=== PATIENT | female | born 1930 | race Hispanic/Latino ===

== ENCOUNTER 2018-08-07 15:58 | Inpatient (IN) | payer MEDICAID, SELFPAY ==
[~2018-08-07 15:58] MED LIST: ISOVUE-370 76%-LOCM 1 ML ONE
[2018-08-07 17:01] LABS: #Eosinphils 0.1 thou/uL (0.0-0.7); #Lymphocytes 0.8 thou/uL (1.20-3.40); #Neutrophils 5.5 thou/uL (1.40-6.50); %Basophils 0.3 % (0.0-1.0); %Eosinophils 1.2 % (0.0-10.0); %Lymphocytes 10.6 % (21.0-51.0); %Monocytes 13.5 % (0.0-10.0); %Neutrophils 74.5 % (42.0-75.0); Hemoglobin 14.2 g/dL (12.0-16.0); Mean Corpuscular HGB CONC 31.4 g/dL (32.0-36.0); Mean Corpuscular Hemoglobin 29.3 pg (27.0-31.0); Mean Corpuscular Volume 93.1 fL (78.0-98.0); Mean Platelet Volume 8.2 fL (7.4-10.4); Platelet Count 200 thou/uL (130-400); RBC Distribution Width 12.7 % (11.5-14.5); Red Blood Cell (RBC) Count 4.86 mill/uL (4.20-5.40); White Blood Cell (WBC) Count 7.4 thou/uL (4.8-10.8)
[2018-08-07 17:08] LABS: ALT (SGPT) 10 U/L (8-55); AST (SGOT) 16 U/L (5-34); Albumin 3.3 g/dL (3.4-4.8); Alkaline Phosphatase 83 U/L (40-150); Anion Gap 11 mmol/L (10-20); BUN (Urea Nitrogen) 13 mg/dL (9.8-20.1); Bilirubin, Total 0.3 mg/dL (0.2-1.2); Calc. Creatinine Clearance 0 mL/min (70-130); Calcium 8.9 mg/dL (7.8-10.44); Carbon Dioxide 29 mmol/L (23-31); Chloride 99 mmol/L (98-107); Estimated GFR-MDRD 47; Globulin 4.1 g/dL (2.4-3.5); Glucose 166 mg/dL (83-110); Potassium 3.9 mmol/L (3.5-5.1); Protein, Total 7.4 g/dL (6.0-8.3); Sodium 135 mmol/L (136-145)
--- NOTE | 2018-08-07 18:31 | CT ---
CT ANGIOGRAM CHEST WITH CONTRAST: 08/07/18 HISTORY: Shortness of breath. COMPARISON: Chest radiograph same day. FINDINGS: CT angiogram of the chest is performed after the intravenous administration of contrast. 3D rendering is provided. There is a proximal segmental pulmonary arterial filling defect. Attenuation of the anterior segment left upper lobe pulmonary artery due to mass effect from hilar mass. Pulmonary trunk is dilated. The aorta is nonaneurysmal. No significant pericardial effusion. The upper abdomen demonstrates a cyst in hepatic segment . Small splenule is noted. Large peripheral pleural based mass superior segment left lower lobe measuring 4.5 x 6.5 x 5.3 cm (tr ansverse x AP x craniocaudad). This is amenable to percutaneous biopsy. There is some hilar lymph nod es measuring up to 9 mm in short axis. There is also a left infrahilar lymph node measuring up to 14 mm in short axis. Peripheral to this mass in the left lower lobe are a few peripheral air space opaci ties. There is an abnormal mass within the right middle lobe peripherally with some central necrosis concer rangel for an either metastatic focus or secondary malignancy. This measures 4.8 x 3 x 1.4 cm. Abnormal thickening of the interstitium bilaterally suggesting some pulmonary venous congestion versus lympha tic congestion. There is an abnormal nodule peripheral aspect right upper lobe measuring 11 mm in transverse x 9 mm i n AP dimension x a craniocaudal length of 1.8 cm. There is some scarring in the left lung apex. There is multiple nodules in the left upper lobe, axial image 53. The largest measuring up to 12 mm. No thoracic spine acute compression deformity. No suspicious osteolytic or osteoblastic lesions are a ppreciated. There is abnormal lymphatic thickening in the peripheral aspect of the left upper lobe and within the lingula. IMPRESSION: 1. 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 2. Bilateral hilar adenopathy with lymphatic congestion creating lymphangitic spread of tumor in the left upper lobe and the lingula as well as the lateral basal left lower lobe. 3. Dilated pulmonary trunk suggesting pulmonary arterial hypertension. 4. No proximal segmental pulmonary arterial filling defect, although there is attenuation of the central vessels from adenopathy. 5. Dominant mass left lower lobe which is pleural based is amenable to percutaneous biopsy. CODE: T POS: [facility]
[2018-08-07] MEDS ORDERED: Ondansetron PF 4 MG/2 ML Vial IVP PRN (21:37)
[2018-08-07] MEDS ORDERED: Zolpidem Tartrate 5 MG TAB PO PRN (21:37)
[2018-08-07] MEDS ORDERED: Morphine 4 MG/ML VIAL SLOW IVP PRN (22:04)
--- NOTE | 2018-08-07 22:05 | PDOC.EVN ---
Event Note - Event Note Event Note: H&P [id number]
[2018-08-07] MEDS ORDERED: Sodium Chloride 0.9% 1,000 ML IV SCH (22:07)
--- NOTE | 2018-08-08 03:00 | HP ---
CHIEF COMPLAINT: Shortness of breath. HISTORY OF PRESENT ILLNESS: This is an 88-year-old female, complaining of cough and shortness of breath for about 2 weeks and gradually worsening with chills, fevers, and significant weakness in the last week. The patient presents to the ER with these complaints, half-handedly had a CT scan done which showed multiple different lesions in both lungs. The patient states that they were not aware of this medical history for the patient. She does admit to some unintentional weight loss. The patient states that she used to smoke for about 7 years, 40 years ago, and quit after that. Has not smoked after that. Denies any hemoptysis. Denies any other associated complaints or symptoms. No alleviating or aggravating factors noted. The patient was seen and examined in the ER. Family at bedside. All questions answered. REVIEW OF SYSTEMS: All systems reviewed. Pertinent positives in HPI, otherwise negative. PAST MEDICAL HISTORY: Positive for hypertension. FAMILY HISTORY: Positive for hypertension. ALLERGIES: THE PATIENT HAD NO KNOWN DRUG ALLERGIES. PHYSICAL EXAMINATION: VITAL SIGNS: Blood pressure 152/67, O2 saturations of 96% on 2 L nasal cannula, temperature of 99.1, respiratory rate of 20, pulse of 97. GENERAL: The patient is lying in bed, in no acute discomfort. Mask on face. HEENT: Pupils are equal, round, and reactive to light and accommodation. Extraocular muscles are intact. Oral cavity is moist and pink. NECK: Supple, mobile, nontender thyroid. CARDIOVASCULAR: Regular rate and rhythm. S1, S2, 2/6 systolic ejection murmur appreciated. PULMONARY: Coarse breath sounds bilaterally. The patient coughing frequently during evaluation. Mild respiratory distress. No increase in AP diameter. ABDOMEN: Positive bowel sounds. Soft, nontender, nondistended. EXTREMITIES: 2+ peripheral pulses. Trace edema. No cyanosis or clubbing noted. NEUROLOGICAL: Cranial nerves 2 through 12 are intact. No loss of sensory function. Antalgic gait. LABORATORY DATA: CBC within normal limits. Basic metabolic panel within normal limits. ASSESSMENT: 1. Lung lesions. 2. Hypertension. 3. Cough. PLAN: At this point in time, we will admit the patient to oncology unit. We will consult Oncology. We would do a CT scan of the head, abdomen, and pelvis to check for any metastatic processes. Case and prognosis were discussed with the patient at length. We will likely need PET scans, biopsies once the patient is stabilized. We will hold off on antibiotics at this point in time, as the patient does not have a high white count, fevers currently or coughing up any sputum, p.r.n. antitussive medications, and we will await oncology evaluation. Case and plan were discussed with the patient and family at length in Panamanian and Wolof. They understand and agree with this plan. Job ID: [id number]
[2018-08-08 06:56] LABS: #Eosinphils 0.2 thou/uL (0.0-0.7); #Monocytes 0.9 thou/uL (0.11-0.59); #Neutrophils 4.1 thou/uL (1.40-6.50); %Basophils 0.1 % (0.0-1.0); %Eosinophils 3.3 % (0.0-10.0); %Lymphocytes 15.6 % (21.0-51.0); %Monocytes 14.2 % (0.0-10.0); %Neutrophils 66.8 % (42.0-75.0); Hemoglobin 13.3 g/dL (12.0-16.0); Mean Corpuscular HGB CONC 31.8 g/dL (32.0-36.0); Mean Corpuscular Hemoglobin 29.6 pg (27.0-31.0); Mean Corpuscular Volume 93.3 fL (78.0-98.0); Mean Platelet Volume 7.9 fL (7.4-10.4); Platelet Count 192 thou/uL (130-400); RBC Distribution Width 12.8 % (11.5-14.5); Red Blood Cell (RBC) Count 4.48 mill/uL (4.20-5.40); White Blood Cell (WBC) Count 6.1 thou/uL (4.8-10.8)
[2018-08-08 07:13] LABS: Anion Gap 10 mmol/L (10-20); BUN (Urea Nitrogen) 15 mg/dL (9.8-20.1); Calc. Creatinine Clearance 0 mL/min (70-130); Calcium 8.5 mg/dL (7.8-10.44); Carbon Dioxide 29 mmol/L (23-31); Chloride 103 mmol/L (98-107); Estimated GFR-MDRD 68; Glucose 100 mg/dL (83-110); Potassium 3.9 mmol/L (3.5-5.1); Sodium 138 mmol/L (136-145)
[2018-08-08] MEDS: Heparin 5,000 UNITS/ML VIAL SC SCH ×2 (08:55→20:27)
[2018-08-08] MEDS ORDERED: Prevnar 13-Val Conj/PF 0.5 ML SYRINGE IM ONE (09:00)
--- NOTE | 2018-08-08 14:57 | PDOC.PN ---
- Subjective Encounter Start Date: 08/08/18 Encounter Start Time: 14:55 Subjective: no new complaints. feel yoana.care discussed w family at bedside - Objective MAR Reviewed: Yes Vital Signs & Weight: Vital Signs (12 hours) Temp Pulse Resp BP Pulse Ox 08/08/18 11:42 98.0 F 72 16 123/77 93 L 08/08/18 08:00 92 L 08/08/18 07:11 98.1 F 82 18 112/53 L 92 L 08/08/18 04:00 98.4 F 101 H 20 122/71 95 Weight Weight 4.409 oz Result Diagrams: 08/08/18 06:13 08/08/18 06:13 Phys Exam - Physical Examination Constitutional: NAD HEENT: PERRLA, moist MMs, sclera anicteric Neck: no nodes, no JVD, supple, full ROM Respiratory: no wheezing, no rales, no rhonchi Cardiovascular: RRR, no significant murmur Gastrointestinal: soft, non-tender, no distention, positive bowel sounds Musculoskeletal: no edema, pulses present Neurological: non-focal, normal sensation, moves all 4 limbs Psychiatric: normal affect, A&O x 3 Skin: no rash Dx/Plan (1) Lung nodules Status: Acute (2) Weight loss Status: Acute - Plan plan discussed w/ family, DVT proph w/SCDs Ct Abdomen and pelvis w brain for staging -: Oncology rec srequested. -: HD stable -: further management depending on results of varoius imaging studies -: am labs.NPo after MN for possible LN Bx * . Review of Systems - Review of Systems Constitutional: weakness, malaise. negative: fever, chills, sweats, other Respiratory: Cough, Shortness of Breath, SOB with Excertion Cardiovascular: negative: chest pain, palpitations, orthopnea, paroxysmal nocturnal dyspnea, edema, light headedness, other Gastrointestinal: negative: Nausea, Vomiting, Abdominal Pain, Diarrhea, Constipation, Melena, Hematochezia, Other Genitourinary: negative: Dysuria, Frequency, Incontinence, Hematuria, Retention , Other Musculoskeletal: negative: Neck Pain, Shoulder Pain, Arm Pain, Back Pain, Hand Pain, Leg Pain, Foot Pain, Other Neurological: negative: Weakness, Numbness, Incoordination, Change in Speech, Confusion, Seizures, Other - Medications/Allergies Allergies/Adverse Reactions: Allergies Allergy/AdvReac Type Severity Reaction Status Date / Time No Known Drug Allergies Allergy Verified 08/07/18 21:54 Medications: Current Medications Acetaminophen (Tylenol) 650 mg PO Q4H PRN PRN Reason: Headache/Fever/Mild Pain (1-3) Heparin Sodium (Porcine) (Heparin) 5,000 units SC BID ANASTASIYA Last Admin: 08/08/18 08:55 Dose: Not Given Morphine Sulfate (Morphine) 2 mg SLOW IVP Q4H PRN PRN Reason: Pain Ondansetron HCl (Zofran) 4 mg IVP Q6H PRN PRN Reason: Nausea/Vomiting Sodium Chloride (Flush - Normal Saline) 10 ml IVF Q12HR PRN PRN Reason: Saline Flush Zolpidem Tartrate (Ambien) 5 mg PO HSPRN PRN PRN Reason: Insomnia
--- NOTE | 2018-08-08 16:29 | CON ---
DATE OF CONSULTATION: REASON FOR CONSULT: Lung mass. HISTORY OF PRESENT ILLNESS: The patient is an 88-year-old Malawian-speaking only female, who presented to the emergency room with a 2-week history of shortness of breath, chills, fevers, and weakness. She had a several pound weight loss. A CT angio of the chest and thorax was performed, which showed a 4.5 x 6.5 x 5.3 left lower lobe pleural-based mass. There was a 4.8 x 3 x 1.4 cm right middle lobe mass. There was hilar lymphadenopathy. No evidence of pulmonary embolus. She has a 40 pack year plus history of smoking, quit about 7 or 8 years ago. 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 She admits to having some congestion and a sore throat. No hemoptysis. The family states that prior to the last 2 weeks, she is independent with her ADLs and had no complaints. PAST MEDICAL HISTORY: Hypertension. PAST SURGERIES: None. HOME MEDICATIONS: 1. Tessalon Perles p.r.n. 2. Iron daily. FAMILY HISTORY: No known history of cancer. SOCIAL HISTORY: She is , lives with her family. No current alcohol, tobacco, or illicit drug use. 40 plus pack-year history of smoking, quit 8 years ago. REVIEW OF SYSTEMS: Negative except for noted in HPI. PHYSICAL EXAMINATION: VITAL SIGNS: Temperature is 98.0, pulse is 72, respiratory rate is 16, BP is 123/77. She is 93% on 2 L. GENERAL: Well-developed, well-nourished female, in no acute distress. HEENT: Normocephalic, atraumatic. Pupils are equal and reactive to light. NECK: Supple with no masses. CV: Regular rate and rhythm. LUNGS: Diminished throughout. ABDOMEN: Soft and nontender. Bowel sounds are positive. There is no organomegaly. EXTREMITIES: No clubbing, cyanosis, or edema. SKIN: No rash. HEMATOLOGICAL: No petechiae or purpura. LYMPH: No palpable lymphadenopathy. PSYCH: The patient is alert and oriented. PERTINENT LABS AND X-RAYS: Current WBCs are 6.1, hemoglobin 13.3, hematocrit 41.8, platelet count is 192,000. She has 66% neutrophils, 15% lymphocytes, 14% monocytes. Sodium is 138, potassium 3.9, chloride 103, CO2 is 29, BUN is 15, creatinine is 0.80, lactic acid is 1.4, calcium 8.5, total bilirubin is 0.3, AST 16, ALT is 10, alkaline phosphatase is 83, serum total protein is 7.4, albumin 3.3, globulin 4.1. Radiology per HPI. ASSESSMENT: 1. Left lower lobe pleural-based mass. 2. Right middle lobe lesion. DISCUSSION: Current condition was discussed with the patient and family at bedside. We discussed that she will have likely advanced stage of cancer based on her CT angio. She has a brain CT and abdominal pelvis CT scheduled for further staging. We discussed percutaneous biopsy and pathology. We discussed chemotherapy versus immunotherapy, curable versus incurable disease. The plan after discussion will be to complete the further scanning. If she has widespread metastatic disease, she would likely go home on hospice. Otherwise, we will do a biopsy in the next day or so, and further recommendations will be based on those results. Thank you for the consult. Job ID: [id number]
--- NOTE | 2018-08-08 18:05 | CT ---
ABDOMEN CT WITH CONTRAST PELVIC CT WITH CONTRAST: HISTORY: Lung cancer. Evaluate for metastases. COMPARISON: None. FINDINGS: Incompletely evaluated opacities in the lingula. Refer to CT angiogram report for further details. Visualized heart size is within normal limits. Visualized aorta has a normal caliber. Symmetric att enuation of the psoas muscles. Hypodensities in the central portion of the liver, near the portal hepatis, likely representing hepat ic cysts or possible focal collections of bile. Attenuation coefficient is between 37 and 24 Hounsfi eld units. These hypodensities measure 2.1 x 1.4 and 2.1 x 0.7 cm. Intra- and extrahepatic portal v eins are patent. There does appear to be CT evidence of cholelithiasis with gallbladder wall enhance ment. Correlate clinically for cholecystitis. No significant fluid in the gallbladder fossa. The s pleen, pancreas, and adrenal glands appear to be symmetric. Exophytic hypodensity emanating from the anterior aspect of the right kidney, measuring 9 mm cannot be further characterized but is statistic ally favored to be a cyst. There is symmetric enhancement of the kidneys. No obstructive uropathy. No gastrohepatic, retrocrural, or periportal lymphadenopathy. No mesenteric mass, lymphadenopathy, free air, or free fluid. Gastric mucosa, duodenum, and multiple normal caliber small bowel loops were appreciated. Ileocecal junction is normal. Appendix is not appreciated. No inflammation of the cecal apex. Scattered feca l material in a nondistended, nondilated colon. CT PELVIS: Surgically absent uterus. No pelvic mass, lymphadenopathy, free air, or free fluid. No lytic or blastic lesions in the osseous structures. IMPRESSION: 1. No evidence of intraabdominal or pelvic metastases. 2. Hypodensity in the central portion of the liver as described above. Correlate for focal collecti ons of bile versus cysts. 3. CT evidence of cholelithiasis with gallbladder wall enhancement. Correlate clinically for cholec ystitis. POS: [facility]
[2018-08-09] MEDS: Benzonatate 100 MG CAP PO PRN ×2 (08:16→20:57)
[2018-08-09] MEDS: Heparin 5,000 UNITS/ML VIAL SC SCH ×2 (08:16→21:46)
[2018-08-09] MEDS ORDERED: traMADol HCl 50 MG TAB PO PRN (11:09)
--- NOTE | 2018-08-09 11:13 | PDOC.EVN ---
Event Note - Event Note Event Note: ACP NOTE - Discussed code status with pt and her son at bedside with the help of clinical nursing intern. Explained her possible diagnosis of Carcinoma with pending studies to locate metastasis if any. Explained possible disease trajectory in case of mets Vs w/o Mets. Pt explained and understood the resuscitation process. At this time she will like to be a Full code.Her son at bedside ,Mr Painter is being appointed her MPOA for the time being by her. Will consult [employer] for official papers for MPOA and enter Code status orders in [facility]. Total time spent in face to face ACP conversation 19 minutes
--- NOTE | 2018-08-09 12:37 | MRI ---
MRI BRAIN: DATE: 08/09/2018. PROVIDED CLINICAL HISTORY: Lung cancer, evaluate for metastases. FINDINGS: The ventricular system appears normal in size and morphology. There is no evidence for intracranial hemorrhage or mass effect. Chronic microvascular ischemic changes are demonstrated. There is no res tricted diffusion to suggest recent infarction. There is no abnormal contrast enhancement to suggest metastatic disease. Appropriate flow voids are seen within the major intracranial vessels. Mucosal thickening is noted involving the paranasal sinuses with opacification of about half of the right ma xillary sinus. The extracranial soft tissues and calvarial marrow signal appear otherwise unremarkab le. IMPRESSION: 1. No evidence for an acute intracranial abnormality. 2. Paranasal sinus mucosal disease. POS: [facility]
--- NOTE | 2018-08-09 14:12 | PDOC.PN ---
- Subjective Encounter Start Date: 08/09/18 Encounter Start Time: 14:11 Subjective: feels Ok but still very weak and gets easily SOB -: care discussed w Son at bedside -: persistent cough last night & couldn't sleep - Objective MAR Reviewed: Yes Vital Signs & Weight: Vital Signs (12 hours) Temp Pulse Resp BP BP Pulse Ox 08/09/18 11:40 98.1 F 72 18 135/63 99 08/09/18 08:00 98.1 F 74 18 123/69 95 Weight Weight 4.409 oz Result Diagrams: 08/08/18 06:13 08/08/18 06:13 Radiology Reviewed by me: Yes (CT A/;P-no mets or masses. no acute chnages) Phys Exam - Physical Examination Constitutional: NAD HEENT: PERRLA, moist MMs, sclera anicteric, oral pharynx no lesions Neck: no nodes, no JVD, supple, full ROM Respiratory: no wheezing, no rales, no rhonchi, clear to auscultation bilateral Cardiovascular: RRR, no significant murmur Gastrointestinal: soft, non-tender, no distention, positive bowel sounds Musculoskeletal: no edema, pulses present Neurological: non-focal, normal sensation, moves all 4 limbs Dx/Plan (1) Lung nodules Status: Acute (2) Weight loss Status: Acute - Plan DVT proph w/SCDs MRI brain today for staging -: Rx plan based on MRI. -: cont supportive care -: add Guafensin w Codeine. * . Review of Systems - Review of Systems Constitutional: weakness, malaise. negative: fever, chills, sweats, other Respiratory: Cough, SOB with Excertion. negative: Dry, Shortness of Breath, Hemoptysis, Pleuritic Pain, Sputum, Wheezing Cardiovascular: chest pain. negative: palpitations, orthopnea, paroxysmal nocturnal dyspnea, edema, light headedness, other Gastrointestinal: negative: Nausea, Vomiting, Abdominal Pain, Diarrhea, Constipation, Melena, Hematochezia, Other Genitourinary: negative: Dysuria, Frequency, Incontinence, Hematuria, Retention , Other Musculoskeletal: negative: Neck Pain, Shoulder Pain, Arm Pain, Back Pain, Hand Pain, Leg Pain, Foot Pain, Other Neurological: negative: Weakness, Numbness, Incoordination, Change in Speech, Confusion, Seizures, Other - Medications/Allergies Allergies/Adverse Reactions: Allergies Allergy/AdvReac Type Severity Reaction Status Date / Time No Known Drug Allergies Allergy Verified 08/07/18 21:54 Medications: Current Medications Acetaminophen (Tylenol) 650 mg PO Q4H PRN PRN Reason: Headache/Fever/Mild Pain (1-3) Benzonatate (Tessalon) 100 mg PO Q8H PRN PRN Reason: Cough Last Admin: 08/09/18 08:16 Dose: 100 mg Guaifenesin/Codeine Phosphate (Robitussin Ac) 10 ml PO Q6H PRN PRN Reason: cough Heparin Sodium (Porcine) (Heparin) 5,000 units SC BID ANASTASIYA Last Admin: 08/09/18 08:16 Dose: 5,000 units Morphine Sulfate (Morphine) 2 mg SLOW IVP Q4H PRN PRN Reason: Pain Ondansetron HCl (Zofran) 4 mg IVP Q6H PRN PRN Reason: Nausea/Vomiting Sodium Chloride (Flush - Normal Saline) 10 ml IVF Q12HR PRN PRN Reason: Saline Flush Tramadol HCl (Ultram) 50 mg PO Q4H PRN PRN Reason: Moderate Pain (4-6) Zolpidem Tartrate (Ambien) 5 mg PO HSPRN PRN PRN Reason: Insomnia
[2018-08-09] MEDS: guaiFENesin/Codeine Phosphate 200 mg/20 mg 10 ml UD Cup PO PRN ×2 (15:42→21:50)
[2018-08-10] MEDS: guaiFENesin/Codeine Phosphate 200 mg/20 mg 10 ml UD Cup PO PRN ×2 (09:27→20:45)
[2018-08-10] MEDS: Amlodipine 5 MG TAB PO SCH (09:27)
[2018-08-10] MEDS: Heparin 5,000 UNITS/ML VIAL SC SCH ×2 (09:27→20:31)
--- NOTE | 2018-08-10 13:31 | PDOC.PN ---
- Subjective Encounter Start Date: 08/10/18 Encounter Start Time: 13:29 Subjective: feesl OK. was able to get some sleep last night -: still coughing but less w medicine.no CP.sob w exertion - Objective MAR Reviewed: Yes Vital Signs & Weight: Vital Signs (12 hours) Temp Pulse Resp BP BP BP Pulse Ox 08/10/18 09:27 85 145/65 H 08/10/18 08:00 98.7 F 81 18 155/65 H 96 08/10/18 03:22 97.6 F 77 20 164/72 H 97 Weight Weight 4.409 oz I&O: 08/09/18 08/10/18 08/11/18 06:59 06:59 06:59 Intake Total 1100 Balance 1100 Result Diagrams: 08/08/18 06:13 08/08/18 06:13 Radiology Reviewed by me: Yes (mri brain- no mets) Phys Exam - Physical Examination Constitutional: NAD HEENT: PERRLA, moist MMs, sclera anicteric, oral pharynx no lesions Neck: no nodes, no JVD, supple, full ROM Respiratory: no wheezing, no rales, no rhonchi, clear to auscultation bilateral Cardiovascular: RRR, no significant murmur, no rub Gastrointestinal: soft, non-tender, no distention, positive bowel sounds Musculoskeletal: no edema, pulses present Neurological: non-focal, normal sensation, moves all 4 limbs Psychiatric: normal affect, A&O x 3 Skin: no rash Dx/Plan (1) Lung nodules Status: Acute (2) Weight loss Status: Acute - Plan DVT proph w/SCDs will likley need lung nodule Bx-defer to Oncology -: Hd stable. -: add low dose norvasc as BP continues to run high * . Review of Systems - Review of Systems Constitutional: weakness, malaise Respiratory: Cough, SOB with Excertion. negative: Dry, Shortness of Breath, Hemoptysis, Pleuritic Pain, Sputum, Wheezing Cardiovascular: negative: chest pain, palpitations, orthopnea, paroxysmal nocturnal dyspnea, edema, light headedness, other Gastrointestinal: negative: Nausea, Vomiting, Abdominal Pain, Diarrhea, Constipation, Melena, Hematochezia, Other Genitourinary: negative: Dysuria, Frequency, Incontinence, Hematuria, Retention , Other Musculoskeletal: negative: Neck Pain, Shoulder Pain, Arm Pain, Back Pain, Hand Pain, Leg Pain, Foot Pain, Other Skin: negative: Rash, Lesions, Nikolay, Bruising, Other Neurological: negative: Weakness, Numbness, Incoordination, Change in Speech, Confusion, Seizures, Other - Medications/Allergies Allergies/Adverse Reactions: Allergies Allergy/AdvReac Type Severity Reaction Status Date / Time No Known Drug Allergies Allergy Verified 08/07/18 21:54 Medications: Current Medications Acetaminophen (Tylenol) 650 mg PO Q4H PRN PRN Reason: Headache/Fever/Mild Pain (1-3) Amlodipine Besylate (Norvasc) 2.5 mg PO DAILY [facility] Last Admin: 08/10/18 09:27 Dose: 2.5 mg Benzonatate (Tessalon) 100 mg PO Q8H PRN PRN Reason: Cough Last Admin: 08/09/18 20:57 Dose: 100 mg Guaifenesin/Codeine Phosphate (Robitussin Ac) 10 ml PO Q6H PRN PRN Reason: cough Last Admin: 08/10/18 09:27 Dose: 10 ml Heparin Sodium (Porcine) (Heparin) 5,000 units SC BID [facility] Last Admin: 08/10/18 09:27 Dose: 5,000 units Morphine Sulfate (Morphine) 2 mg SLOW IVP Q4H PRN PRN Reason: Pain Ondansetron HCl (Zofran) 4 mg IVP Q6H PRN PRN Reason: Nausea/Vomiting Sodium Chloride (Flush - Normal Saline) 10 ml IVF Q12HR PRN PRN Reason: Saline Flush Tramadol HCl (Ultram) 50 mg PO Q4H PRN PRN Reason: Moderate Pain (4-6) Zolpidem Tartrate (Ambien) 5 mg PO HSPRN PRN PRN Reason: Insomnia
[2018-08-11] MEDS: Heparin 5,000 UNITS/ML VIAL SC SCH ×2 (08:39→20:56)
[2018-08-11] MEDS: Amlodipine 5 MG TAB PO SCH (08:41)
[2018-08-11] MEDS: Acetaminophen 325 MG TAB PO PRN (10:38)
[2018-08-11 11:43] LABS: Prothrombin Time 13.5 SEC (12.0-14.7)
[2018-08-11] MEDS ORDERED: Fentanyl 100 MCG/2 ML VIAL ONE (13:18)
[2018-08-11] MEDS ORDERED: Midazolam HCl 2 mg/2 ml Vial ONE (13:18)
[2018-08-11] MEDS ORDERED: Sodium Bicarbonate 2.5 MEQ/5 ML VIAL ONE (13:18)
--- NOTE | 2018-08-11 14:31 | PDOC.PN ---
- Subjective Encounter Start Date: 08/11/18 Encounter Start Time: 14:30 Subjective: no new complaints.still SOB w minimal exertion -: care discussed w family at bedside.Lung Biopsy today - Objective MAR Reviewed: Yes Vital Signs & Weight: Vital Signs (12 hours) Temp Pulse Resp BP BP Pulse Ox 08/11/18 08:41 79 147/68 H 08/11/18 08:00 96 08/11/18 06:52 98.0 F 79 16 147/68 H 96 08/11/18 03:47 97.8 F 63 16 127/62 98 Weight Weight 4.409 oz I&O: 08/10/18 08/11/18 08/12/18 06:59 06:59 06:59 Intake Total 1100 950 120 Balance 1100 950 120 Result Diagrams: 08/08/18 06:13 08/08/18 06:13 Phys Exam - Physical Examination Constitutional: NAD HEENT: PERRLA, moist MMs, sclera anicteric, oral pharynx no lesions Neck: no nodes, no JVD, supple, full ROM Respiratory: no wheezing, no rales, no rhonchi, clear to auscultation bilateral Cardiovascular: RRR, no significant murmur, no rub Gastrointestinal: soft, non-tender, no distention, positive bowel sounds Musculoskeletal: no edema, pulses present Neurological: non-focal, normal sensation, moves all 4 limbs Psychiatric: normal affect, A&O x 3 Skin: no rash Dx/Plan (1) Lung nodules Status: Acute (2) Weight loss Status: Acute - Plan DVT proph w/SCDs Lung Biopsy today. -: Will arrange for home oxygen as low O2 sats without supplemental -: No mets on MRI brain and CT A/P. -: Likely DC home in am if stable w OP Oncology follow up for Rx * . Review of Systems - Review of Systems Constitutional: negative: fever, chills, sweats, weakness, malaise, other ENT: negative: Ear Pain, Ear Discharge, Nose Pain, Nose Discharge, Nose Congestion, Mouth Pain, Mouth Swelling, Throat Pain, Throat Swelling, Other Respiratory: Shortness of Breath, SOB with Excertion. negative: Cough, Dry, Hemoptysis, Pleuritic Pain, Sputum, Wheezing Cardiovascular: negative: chest pain, palpitations, orthopnea, paroxysmal nocturnal dyspnea, edema, light headedness, other Gastrointestinal: negative: Nausea, Vomiting, Abdominal Pain, Diarrhea, Constipation, Melena, Hematochezia, Other Genitourinary: negative: Dysuria, Frequency, Incontinence, Hematuria, Retention , Other Musculoskeletal: negative: Neck Pain, Shoulder Pain, Arm Pain, Back Pain, Hand Pain, Leg Pain, Foot Pain, Other Neurological: negative: Weakness, Numbness, Incoordination, Change in Speech, Confusion, Seizures, Other - Medications/Allergies Allergies/Adverse Reactions: Allergies Allergy/AdvReac Type Severity Reaction Status Date / Time No Known Drug Allergies Allergy Verified 08/07/18 21:54 Medications: Current Medications Acetaminophen (Tylenol) 650 mg PO Q4H PRN PRN Reason: Headache/Fever/Mild Pain (1-3) Last Admin: 08/11/18 10:38 Dose: 650 mg Amlodipine Besylate (Norvasc) 2.5 mg PO DAILY [facility] Last Admin: 08/11/18 08:41 Dose: 2.5 mg Benzonatate (Tessalon) 100 mg PO Q8H PRN PRN Reason: Cough Last Admin: 08/09/18 20:57 Dose: 100 mg Guaifenesin/Codeine Phosphate (Robitussin Ac) 10 ml PO Q6H PRN PRN Reason: cough Last Admin: 08/10/18 20:45 Dose: 10 ml Heparin Sodium (Porcine) (Heparin) 5,000 units SC BID [facility] Last Admin: 08/11/18 08:39 Dose: Not Given Morphine Sulfate (Morphine) 2 mg SLOW IVP Q4H PRN PRN Reason: Pain Ondansetron HCl (Zofran) 4 mg IVP Q6H PRN PRN Reason: Nausea/Vomiting Sodium Chloride (Flush - Normal Saline) 10 ml IVF Q12HR PRN PRN Reason: Saline Flush Tramadol HCl (Ultram) 50 mg PO Q4H PRN PRN Reason: Moderate Pain (4-6) Zolpidem Tartrate (Ambien) 5 mg PO HSPRN PRN PRN Reason: Insomnia
--- NOTE | 2018-08-11 15:46 | CT ---
CT GUIDED LEFT LOWER LOBE LUNG BIOPSY: Date: 08/11/18 HISTORY: 88-year-old female with left lower lobe lung masses, consisting of a dominant mass and multiple surro unding satellite nodules. TECHNIQUE: Signed, informed consent obtained. The patient was placed prone on the CT table. Skin posterior to th e left lower lobe prepared and draped in the usual sterile fashion. 25 gauge needle used to apply lid ocaine superficially and deeply. Under step CT guidance, a 17 gauge introducer needle was advanced to the posterior aspect of the large, left lower lobe pulmonary mass with broad pleural base. Stylette was removed from the introducer needle. 18 gauge biopsy needle was placed in coaxial fashion through the introducer needle. The biopsy gun was fired, yielding core tissue sample, which was placed in For mary. Next, after arrival of Dr. Gupta of pathology, a second 18 gauge core sample was obtained, whi ch was smeared on the slide, then placed in formalin. The needle was removed. The patient tolerated t he procedure well. No complications. FINDINGS: Images demonstrate the introducer needle at the posterior aspect of the large left lower lobe pulmona ry mass with broad pleural base. Post biopsy images demonstrate minimal pulmonary contusion anterior to the pulmonary mass, but no pneumothorax. 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 Awaiting final histological report. IMPRESSION: Technically successful 18 gauge core biopsy of large left lower lobe pulmonary mass x2. POS: [facility]
[2018-08-11] MEDS: guaiFENesin/Codeine Phosphate 200 mg/20 mg 10 ml UD Cup PO PRN (21:04)
[2018-08-12 09:24] VITALS: BP 162/70; TEMP 98.5
[2018-08-12] MEDS: Amlodipine 5 MG TAB PO SCH (09:27)
[2018-08-12] MEDS: Heparin 5,000 UNITS/ML VIAL SC SCH (09:27)
[2018-08-12] MEDS: Acetaminophen 325 MG TAB PO PRN (13:45)
[2018-08-12] MEDS: guaiFENesin/Codeine Phosphate 200 mg/20 mg 10 ml UD Cup PO PRN (13:45)
--- NOTE | 2018-08-13 09:16 | DIS ---
DATE OF ADMISSION: 08/07/2018 DATE OF DISCHARGE: 08/12/2018 DISCHARGE DISPOSITION: Home. FOLLOWUP: 1. Follow up with primary care physician at [facility]. 2. Follow up with Dr. Gandhi, outpatient next week. ALLERGIES: NO KNOWN DRUG ALLERGIES. DISCHARGE MEDICATIONS: 1. Albuterol inhaler as needed. 2. Amlodipine 2.5 mg daily. 3. Mucinex twice a day. 4. Oral iron supplementation daily. 5. Tessalon Perles as needed. The patient was seen and examined on the day of discharge. Denies any new complaints. No chest pain, shortness of breath, or palpitations reported. She is saturating 92% on room air even on ambulation. BRIEF HOSPITAL COURSE: The patient is an 88-year-old female with hypertension, presented to the hospital with cough and shortness of breath of [address] scan of the chest in the emergency room was consistent with left lower lobe malignancy with multiple satellite nodules along with bilateral hilar adenopathy. The patient was monitored on the medical floor. She underwent malignancy workup by Oncology Service including CT scan of the abdomen and MRI of the brain. On August 11, 2018, the patient underwent CT-guided left lower lobe lung malignancy. She was monitored overnight. She did not have any complications. She has been cleared by Oncology for discharge. DIAGNOSTIC TESTS: CT scan of the abdomen and pelvis showed cholelithiasis without any evidence of cholecystitis. There was hypodensity in the central portion of the liver. MRI of the brain was negative for metastatic disease. PLAN: Plan of care was discussed with the patient and the family in detail, they stated understanding. FINAL DIAGNOSES: 1. New diagnosis of lung malignancy with significant weight loss. 2. Cough and shortness of breath secondary to new diagnosis of lung malignancy with significant weight loss. 3. Cholelithiasis. 4. Hypertension, started on amlodipine. 5. Mild acute kidney injury on chronic kidney disease stage 2. 6. Mild hyponatremia. 7. Mild protein-calorie malnutrition. Job ID: [id number]
== END 2018-08-12 13:57 | disposition home or self-care (01) | DRG 181 ==
LOC: ERS 15:58 → T4-A 21:33 → ONC 08-09 11:07
PROVIDERS: ADMIT Internal Medicine; ATTEND Internal Medicine
PROC: 0BBJ3ZX Excision of Left Lower Lung Lobe, Percutaneous Approach, Diagnostic (ICD-10-PCS; principal; 2018-08-11)
DX: C34.32 Malignant neoplasm of lower lobe, left bronchus or lung (principal); N17.9 Acute kidney failure, unspecified; E87.1 Hypo-osmolality and hyponatremia; E44.1 Mild protein-calorie malnutrition; K80.20 Calculus of gallbladder without cholecystitis without obstruction; N18.2 Chronic kidney disease, stage 2 (mild); I12.9 Hypertensive chronic kidney disease with stage 1 through stage 4 chronic kidney disease, or unspecified chronic kidney disease; Z87.891 Personal history of nicotine dependence
CPT/HCPCS: 32405; 36415; 70553; 71275; 74177; 77012; 80048; 80053; 83605; 84484; 85025; 85610; 85730; 88305; 88333; 88341; 88342; 93005; 94760; J1642; J1644; J2250; J3010; Q9966

== ENCOUNTER 2018-09-18 11:30 | Day surgery (SDC) | payer MEDICAID ==
[2018-09-18] MEDS ORDERED: Sodium Chloride 0.9% 30 ML ONE (12:02)
[2018-09-18 12:06] VITALS: BP 133/60; TEMP 97.7
[2018-09-18] MEDS ORDERED: Pembrolizumab 200 MG in Sodium Chloride 0.9% 250 ML 250 ML IV SCH (12:15)
== END 2018-09-18 13:38 | disposition home or self-care (01) ==
LOC: ONC/OP 11:30
PROVIDERS: ATTEND Internal Medicine Hematology & Oncology
DX: Z51.11 Encounter for antineoplastic chemotherapy (principal); C34.32 Malignant neoplasm of lower lobe, left bronchus or lung
CPT/HCPCS: 96413; J7050; J9271

== ENCOUNTER 2018-10-09 11:31 | Day surgery (SDC) | payer MEDICAID ==
[~2018-10-09 11:31] MED LIST changes: -ISOVUE-370 76%-LOCM 1 ML ONE; +Pembrolizumab 200 MG in Sodium Chloride 0.9% 250 ML 250 ML IV SCH
[2018-10-09 12:03] VITALS: BP 111/64; TEMP 98.3
[2018-10-09] MEDS ORDERED: Sodium Chloride 0.9% 20 ML ONE (12:09)
== END 2018-10-09 12:33 | disposition home or self-care (01) ==
LOC: ONC/OP 11:31
PROVIDERS: ATTEND Internal Medicine Hematology & Oncology
DX: Z51.11 Encounter for antineoplastic chemotherapy (principal); C34.32 Malignant neoplasm of lower lobe, left bronchus or lung
CPT/HCPCS: 96413

== ENCOUNTER 2018-10-30 10:36 | Day surgery (SDC) | payer MEDICAID ==
[2018-10-30] MEDS ORDERED: Sodium Chloride 0.9% 20 ML ONE (10:40)
[2018-10-30 11:36] VITALS: BP 148/64; TEMP 97.9
[2018-10-30] MEDS ORDERED: Prevnar 13-Val Conj/PF 0.5 ML SYRINGE IM ONE (15:00)
== END 2018-10-30 16:29 | disposition home or self-care (01) ==
LOC: ONC/OP 10:36
PROVIDERS: ATTEND Internal Medicine Hematology & Oncology
DX: Z51.12 Encounter for antineoplastic immunotherapy (principal); C34.32 Malignant neoplasm of lower lobe, left bronchus or lung
CPT/HCPCS: 96413; J7050; J9271

== ENCOUNTER 2018-11-27 12:23 | Day surgery (SDC) | payer SELFPAY ==
--- NOTE | 2018-11-27 13:49 | RAD ---
XR Thoracic Spine 3 V STANDARD: 11/27/2018 12:00 AM CLINICAL INDICATION: Back pain COMPARISON: None. FINDINGS: Fracture:Discrete fracture not visualized Arthropathy:Prominent multilevel degenerative change of the thoracic spine. There is thoracic kyphosi s as well as S-shaped spinal curvature Incidental findings:Vascular calcification. 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
[2018-11-27] MEDS ORDERED: Sodium Chloride 0.9% 20 ML ONE (13:57)
--- NOTE | 2018-11-27 15:44 | RAD ---
CERVICAL SPINE: 11/27/18 HISTORY: Neck and back pain. There are degenerative changes of the cervical spine. Loss of disc space and degenerative spurring se en at C2-3, C4-5, C5-6 and C6-7 levels. Posterior spondylosis is prominent at C2-3, C3-4, C4-5 and C5 -6 levels. There is slight posterolisthesis at C4-5. Mild anterior wedging of C4 and C5 vertebra. Fac et hypertrophy. IMPRESSION: Moderate degenerative changes of the cervical spine as described. POS: [facility]
[2018-11-27 16:33] VITALS: BP 134/63; TEMP 97.9
== END 2018-11-27 16:37 | disposition home or self-care (01) ==
LOC: ONC/OP 12:23
PROVIDERS: ATTEND Internal Medicine Hematology & Oncology
DX: Z51.12 Encounter for antineoplastic immunotherapy (principal); C34.32 Malignant neoplasm of lower lobe, left bronchus or lung
CPT/HCPCS: 72040; 72072; 96413

== ENCOUNTER 2018-12-16 08:44 | Outpatient (CLI) | payer MEDICAID, OTHER, SELFPAY ==
--- NOTE | 2018-12-16 09:57 | CT ---
CT Chest W Con History: Lung cancer Comparison: Chest CT August 10, 2018 Findings: The dominant left lower lobe mass has decreased in size with a maximum of 2.5 cm, previousl y 6.5 cm. Satellite nodules along the anterior segment left upper lobe and major fissure are not as well-defined on today's exam. Mass along the right middle lobe has a maximum dimension of 3 cm, previ ously 4.8 cm. The previously described nodule in the right upper lobe peripheral aspect is not as well-defined as g reatest dimension of 7 mm, previously 11 mm. Hilar adenopathy has improved. With largest right hilar lymph node measuring up to 9 mm in size, prev iously 1.4 cm. Hepatic cysts are similar. Adrenal glands are unremarkable. Slight interval size increase left pleura l effusion. No pericardial effusion. Pulmonary trunk size is mildly dilated. No suspicious osteolytic or osteoblastic lesions. Impression: Interval partial response to therapy with size decrease dominant left lower lobe mass, si ze decreased right middle lobe mass, obscured small satellite nodules, and improving adenopathy.
== END 2018-12-16 08:45 | disposition home or self-care (01) ==
LOC: CT 08:44
PROVIDERS: ATTEND Internal Medicine Hematology & Oncology
DX: C34.92 Malignant neoplasm of unspecified part of left bronchus or lung (principal); R91.8 Other nonspecific abnormal finding of lung field
CPT/HCPCS: 71260

== ENCOUNTER 2018-12-18 12:47 | Day surgery (SDC) | payer SELFPAY ==
[2018-12-18] MEDS ORDERED: Sodium Chloride 0.9% 20 ML ONE (13:15)
[2018-12-18 13:16] VITALS: BP 148/69; TEMP 97.7
== END 2018-12-18 14:15 | disposition home or self-care (01) ==
LOC: ONC/OP 12:47
PROVIDERS: ATTEND Internal Medicine Hematology & Oncology
DX: Z51.12 Encounter for antineoplastic immunotherapy (principal); C34.32 Malignant neoplasm of lower lobe, left bronchus or lung
CPT/HCPCS: 96413

== ENCOUNTER 2019-01-08 12:43 | Day surgery (SDC) | payer SELFPAY ==
[2019-01-08] MEDS ORDERED: Sodium Chloride 0.9% 20 ML ONE (12:45)
== END 2019-01-08 13:57 | disposition home or self-care (01) ==
LOC: ONC/OP 12:43
PROVIDERS: ATTEND Internal Medicine Hematology & Oncology
DX: Z51.12 Encounter for antineoplastic immunotherapy (principal); C34.32 Malignant neoplasm of lower lobe, left bronchus or lung
CPT/HCPCS: 96413; J7050; J9271

== ENCOUNTER 2019-01-29 12:16 | Day surgery (SDC) | payer OTHER, SELFPAY ==
[2019-01-29 12:34] VITALS: BP 123/64; TEMP 97.8
== END 2019-01-29 13:37 | disposition home or self-care (01) ==
LOC: ONC/OP 12:16
PROVIDERS: ATTEND Internal Medicine Hematology & Oncology
DX: Z51.12 Encounter for antineoplastic immunotherapy (principal); C34.32 Malignant neoplasm of lower lobe, left bronchus or lung
CPT/HCPCS: 96413; J7050; J9271

== ENCOUNTER 2019-02-19 11:42 | Day surgery (SDC) | payer OTHER ==
[2019-02-19] MEDS ORDERED: Sodium Chloride 0.9% 20 ML ONE (11:45)
== END 2019-02-19 13:58 | disposition home or self-care (01) ==
LOC: ONC/OP 11:42
PROVIDERS: ATTEND Internal Medicine Hematology & Oncology
DX: Z51.12 Encounter for antineoplastic immunotherapy (principal); C34.32 Malignant neoplasm of lower lobe, left bronchus or lung
CPT/HCPCS: 96413

== ENCOUNTER 2019-03-11 08:07 | Outpatient (CLI) | payer OTHER ==
--- NOTE | 2019-03-11 11:39 | CT ---
CT CHEST WITH CONTRAST: Date: 03/11/19 INDICATION: Lung cancer. Comparison made to CT chest dated 12/16/18. FINDINGS: The pleural based mass in the posterior left mid lung is again seen. This has a wedge-shaped appearan ce. It is slightly increased in size when compared to prior exam. Axial measurements today on lung wi ndows measured 4.4 x 3.7 cm. Prior similar measurements were 3.9 x 3.2 cm. The linear mass density in the right mid lung within the right middle lobe which extends laterally to the pleural surface has also increased in size. It continues to measure approximately 2.5 cm AP dime nsion in the axial plane; however, it has increased in size at the pleural surface today, measuring a pproximately 4.8 cm AP dimension in the axial plane. Apical nodular opacities are stable. The chronic appearing interstitial and fibrotic changes in the lingula peripherally along the pleural surface ar e stable. Chronic appearing changes in the lung bases are also unchanged. These are more pronounced i n the left lower lobe posteriorly. Review of the mediastinum today shows confluent right hilar adenopathy which has increased slightly s karla the prior study. Mediastinal lymph nodes appear stable. Left hilar adenopathy does not appear si gnificantly changed. Thoracic aorta shows atherosclerotic change, but no evidence of dissection. Proximal pulmonary arteri es are opacified with no evidence of proximal pulmonary embolus. The bones show osteopenia and degene rative change. Images through the upper abdomen again show a mildly distended gallbladder with a soft tissue density in the gallbladder lumen, which could represent mass or polyp. This has a stable appearance. IMPRESSION: 1. Mild increase in size in the pleural based masses of the posterior left mid lung and the lateral right lung. 2. Slight increase in the right hilar adenopathy. 3. Distended gallbladder with soft tissue density within the gallbladder lumen which is incompletely evaluated. POS: [facility]
== END 2019-03-11 08:08 | disposition home or self-care (01) ==
LOC: BICCT 08:07
PROVIDERS: ATTEND Internal Medicine Hematology & Oncology
DX: C34.32 Malignant neoplasm of lower lobe, left bronchus or lung (principal); R91.8 Other nonspecific abnormal finding of lung field; R59.0 Localized enlarged lymph nodes; K82.8 Other specified diseases of gallbladder
CPT/HCPCS: 71260

== ENCOUNTER 2019-03-12 12:00 | Day surgery (SDC) | payer OTHER ==
[2019-03-12] MEDS ORDERED: Sodium Chloride 0.9% 20 ML ONE (13:18)
== END 2019-03-12 14:08 | disposition home or self-care (01) ==
LOC: ONC/OP 12:00
PROVIDERS: ATTEND Internal Medicine Hematology & Oncology
DX: Z51.12 Encounter for antineoplastic immunotherapy (principal); C34.32 Malignant neoplasm of lower lobe, left bronchus or lung
CPT/HCPCS: 96413

== ENCOUNTER 2019-04-02 11:37 | Day surgery (SDC) | payer OTHER ==
[2019-04-02] MEDS ORDERED: Sodium Chloride 0.9% 20 ML ONE (11:39)
[2019-04-02 12:06] VITALS: BP 132/60; TEMP 97.7
== END 2019-04-02 13:11 | disposition home or self-care (01) ==
LOC: ONC/OP 11:37
PROVIDERS: ATTEND Internal Medicine Hematology & Oncology
DX: Z51.12 Encounter for antineoplastic immunotherapy (principal); C34.32 Malignant neoplasm of lower lobe, left bronchus or lung
CPT/HCPCS: 96413

== ENCOUNTER 2019-04-23 12:04 | Day surgery (SDC) | payer SELFPAY ==
[2019-04-23] MEDS ORDERED: Sodium Chloride 0.9% 20 ML ONE (12:11)
[2019-04-23 12:35] VITALS: BP 151/68; TEMP 98.7
== END 2019-04-23 13:22 | disposition home or self-care (01) ==
LOC: ONC/OP 12:04
PROVIDERS: ATTEND Internal Medicine Hematology & Oncology
DX: Z51.12 Encounter for antineoplastic immunotherapy (principal); C34.32 Malignant neoplasm of lower lobe, left bronchus or lung
CPT/HCPCS: 96413

== ENCOUNTER 2019-05-11 09:02 | Outpatient (CLI) | payer OTHER ==
--- NOTE | 2019-05-11 10:06 | CT ---
CT CHEST WITH CONTRAST: CT ABDOMEN WITH CONTRAST: CT PELVIS WITH CONTRAST: HISTORY: Lung cancer. CORRELATION: None. COMPARISON: 03/11/2019, 12/16/2018, 08/08/2018 FINDINGS: CHEST Mediastinum: Redemonstration of a right peritracheal lymph node, measuring 1.5 x 1.0 cm. Previously l ymph node measured 1.6 x 1.4 cm. Redemonstration of an enlarged right hilar lymph node, currently measuring 1.4 x 1.6 cm. Previously lymph node measured 1.6 x 1.7 cm. Redemonstration of enlarged left hilar lymph node, measuring 1.4 x 0.9 cm. Previously lymph node measured 1.9 x 0.9 cm. Aorta: Unchanged. Heart: Stable configuration and size. No significant pericardial fluid. Trachea and central bronchi: Patent. Pleural spaces: No significant pleural fluid. Trace amount of fluid in the left pleural space is note d. Right lung: Improved opacity in the right middle lobe, abutting the major fissure. Residual ground gl ass opacity and air bronchograms do remain. Currently this opacity measures 2.2 x 1.8 cm. In February 2019 this opacity measured 2.6 x 4.8 cm. There are no new suspicious opacities in the right u pper lobe, middle lobe or right lower lobe. Chronic lung parenchymal changes are noted. There are alveolar opacities in the dependent portion of the right lower lobe on the previous examination, whic h have currently resolved. There is a nonspecific 0.3 cm solid nodule in the medial right lower lobe. Left lung:Changes to the interstitium are presumed to be chronic. There is a persistent opacity in th e superior segment of the left lower lobe that currently measures 2.7 x 3.2 cm. Previously this opacity measured 3.7 x 4.4 cm. Additional chronic changes of the lung parenchyma are noted. There are no new suspicious masses or consolidation in the left upper lobe or left lower lobe. Pneumothorax: None. ABDOMEN Gallbladder: Hyperdense focus in the lumen of the gallbladder, not entirely consistent with a gallsto ne. The possibility of an intraluminal neoplasm cannot be excluded. Persistent dilatation of the central intrahepatic biliary system. Portal vein: Patent Liver: Appropriate enhancement. Spleen: Appropriate enhancement. Pancreas: Appropriate enhancement. Adrenal glands: Appropriate enhancement. Lymphadenopathy: No gastrohepatic, retrocrural or periportal lymphadenopathy. Kidneys: Symmetric enhancement. Bilaterally no obstructive uropathy. Stable 1.4 cm hypodensity emanat ing from the upper pole of the right kidney. Mesentery: No mass, lymphadenopathy, free air or free fluid. Alimentary canal: Unremarkable gastric mucosa. Multiple normal caliber small bowel loops. Unremarkabl e ileocecal junction. Contrast and fecal material in a nondistended, nondilated colon. PELVIS No mass, lymphadenopathy, free air or free fluid. Uterus is surgically absent. Osseous structures: There are no lytic or blastic lesions in the osseous structures. Severe degenerat arturo change in the right hip. IMPRESSION: 1. Overall decrease in size of opacities in the left and right lung as well as enlarged mediastinal l ymph nodes. There is evidence for response to therapy. 2. Persistent dilatation of the gallbladder and central intrahepatic biliary system. Enhancing focus in the lumen of the gallbladder, not compatible with a gallstone. Intraluminal neoplasm cannot be excluded. Transcribed Date/Time: 05/11/2019 10:51 AM
--- NOTE | 2019-05-11 14:40 | NM ---
BONE SCAN: Date: 05/11/19 Patient given 31 mCi technetium MDP IV. Whole body skeletal images obtained. Spot images of skull. INDICATION: Malignant neoplasm left bronchus. FINDINGS: Increased activity at the right hip joint is noted. This is probably degenerative. There is uneven ac tivity in the lower thoracic and lumbar spine, which also appears degenerative. No activity is seen t hat would suggest metastasis. Recommend correlation with thoracic and lumbar spine films to confirm d egenerative change and recommend correlation with right hip films. IMPRESSION: Abnormal activity at the right hip and in the lower thoracic and lumbar spine, which suggest degenera tive change. Correlate with plain films for confirmation. POS: [facility]
== END 2019-05-11 09:03 | disposition home or self-care (01) ==
LOC: CT 09:02
PROVIDERS: ATTEND Internal Medicine Hematology & Oncology
DX: C34.32 Malignant neoplasm of lower lobe, left bronchus or lung (principal); R91.8 Other nonspecific abnormal finding of lung field; R59.0 Localized enlarged lymph nodes
CPT/HCPCS: 71260; 74177; 78306; A9503

== ENCOUNTER 2019-05-14 11:22 | Day surgery (SDC) | payer OTHER ==
[2019-05-14] MEDS ORDERED: Sodium Chloride 0.9% 20 ML ONE (11:27)
[2019-05-14 11:42] VITALS: BP 170/69; TEMP 98.2
== END 2019-05-14 12:33 | disposition home or self-care (01) ==
LOC: ONC/OP 11:22
PROVIDERS: ATTEND Internal Medicine Hematology & Oncology
DX: Z51.12 Encounter for antineoplastic immunotherapy (principal); C34.32 Malignant neoplasm of lower lobe, left bronchus or lung
CPT/HCPCS: 96413

== ENCOUNTER 2019-06-01 07:10 | Outpatient (CLI) | payer OTHER ==
--- NOTE | 2019-06-01 08:33 | ULT ---
GALLBLADDER ULTRASOUND: Date: 06/01/2019 HISTORY: Abnormal gallbladder on CT. FINDINGS: There is a fairly well circumscribed abnormal opacity within the gallbladder with faint shadowing, po ssibly a large gallstone versus a very well defined sludge ball measuring 1.3 x 1.6 x 2.3 cm. Gallbla dder wall is not thickened. No pericholecystic fluid. Common bile duct dilated at 0.9 cm. No focal li saurav masses. The previously noted liver cysts on the prior CT are poorly evaluated on this study. IMPRESSION: 1. Circumscribed opacity within the gallbladder without gallbladder wall thickening or pericholecyst ic fluid. This raises the possibility of a faintly shadowing gallstone versus prominent sludge ball. 2. The previously noted liver cysts are less optimally seen on this study. 3. Common bile duct 0.9 cm. POS: [facility]
== END 2019-06-01 07:11 | disposition home or self-care (01) ==
LOC: BICULT 07:10
PROVIDERS: ATTEND Internal Medicine Hematology & Oncology
DX: R93.2 Abnormal findings on diagnostic imaging of liver and biliary tract (principal); R10.811 Right upper quadrant abdominal tenderness; C34.32 Malignant neoplasm of lower lobe, left bronchus or lung; K76.89 Other specified diseases of liver
CPT/HCPCS: 76705

== ENCOUNTER 2019-06-04 12:08 | Day surgery (SDC) | payer OTHER ==
[2019-06-04] MEDS ORDERED: Sodium Chloride 0.9% 0 ML ONE (12:14)
[2019-06-04 13:11] VITALS: BP 123/60; TEMP 97.9
[2019-06-04] MEDS ORDERED: Sodium Chloride 0.9% 20 ML ONE (13:36)
== END 2019-06-04 13:42 | disposition home or self-care (01) ==
LOC: ONC/OP 12:08
PROVIDERS: ATTEND Internal Medicine Hematology & Oncology
DX: Z51.12 Encounter for antineoplastic immunotherapy (principal); C34.32 Malignant neoplasm of lower lobe, left bronchus or lung
CPT/HCPCS: 96413; J3490

== ENCOUNTER 2019-06-25 11:09 | Day surgery (SDC) | payer OTHER ==
[2019-06-25 11:32] VITALS: BP 176/72; TEMP 97.8
== END 2019-06-25 12:30 | disposition home or self-care (01) ==
LOC: ONC/OP 11:09
PROVIDERS: ATTEND Internal Medicine Hematology & Oncology
DX: Z51.12 Encounter for antineoplastic immunotherapy (principal); C34.32 Malignant neoplasm of lower lobe, left bronchus or lung
CPT/HCPCS: 96413

== ENCOUNTER 2019-07-07 17:08 | Inpatient (IN) | payer OTHER ==
[2019-07-07 18:09] LABS: #Basophils 0.1 thou/uL (0.0-0.2); #Eosinphils 0.3 thou/uL (0.0-0.7); #Lymphocytes 0.9 thou/uL (1.20-3.40); #Monocytes 0.4 thou/uL (0.11-0.59); #Neutrophils 2.3 thou/uL (1.40-6.50); %Basophils 2.7 % (0.0-1.0); %Monocytes 9.6 % (0.0-10.0); %Neutrophils 58.7 % (42.0-75.0); Hemoglobin 13.7 g/dL (12.0-16.0); Mean Corpuscular HGB CONC 32.5 g/dL (32.0-36.0); Mean Corpuscular Hemoglobin 29.3 pg (27.0-31.0); Mean Corpuscular Volume 90.1 fL (78.0-98.0); Mean Platelet Volume 7.9 fL (7.4-10.4); Platelet Count 161 thou/uL (130-400); RBC Distribution Width 13.1 % (11.5-14.5); Red Blood Cell (RBC) Count 4.68 mill/uL (4.20-5.40); White Blood Cell (WBC) Count 3.9 thou/uL (4.8-10.8)
[2019-07-07 18:30] LABS: ALT (SGPT) 12 U/L (8-55); AST (SGOT) 18 U/L (5-34); Albumin 3.6 g/dL (3.4-4.8); Alkaline Phosphatase 87 U/L (40-110); Anion Gap 11 mmol/L (10-20); BUN (Urea Nitrogen) 18 mg/dL (9.8-20.1); Bilirubin, Total 0.2 mg/dL (0.2-1.2); Calc. Creatinine Clearance 0 mL/min (70-130); Calcium 8.5 mg/dL (7.8-10.44); Carbon Dioxide 27 mmol/L (23-31); Chloride 101 mmol/L (98-107); Estimated GFR-MDRD 66; Globulin 3.7 g/dL (2.4-3.5); Glucose 96 mg/dL (83-110); Potassium 4.4 mmol/L (3.5-5.1); Protein, Total 7.3 g/dL (6.0-8.3); Sodium 135 mmol/L (136-145)
--- NOTE | 2019-07-07 18:31 | RAD ---
PA AND LATERAL VIEWS CHEST: 07/07/19 HISTORY: Lung cancer, dyspnea. FINDINGS/IMPRESSION: The heart size is borderline. The aorta is tortuous. There are chronic parenchymal changes in the saqib g hough bilaterally similar to those seen on the CT scan of 05/11/19. No lobar consolidation, pneumo thoraces, jacquie pulmonary edema or large effusions are seen. There are degenerative changes in the sp ine. POS: [facility]
[2019-07-07] MEDS ORDERED: predniSONE 20 MG TAB ONE (19:23)
[2019-07-07] MEDS ORDERED: Albuterol Sulfate 2.5 mg/3 ml Neb ONE (19:24)
[2019-07-07] MEDS ORDERED: Albuterol Sulfate 1.25 MG/3 ML NEB ONE (20:38)
[2019-07-07 21:56] LABS: Troponin I Less than 0.010 ng/mL (< 0.028)
[2019-07-07] MEDS ORDERED: Aspirin 325 MG TAB ONE (22:35)
[2019-07-07] MEDS ORDERED: Acetaminophen 325 MG TAB PO PRN (23:33)
[2019-07-07] MEDS ORDERED: Ondansetron PF 4 MG/2 ML Vial IVP PRN (23:33)
[2019-07-07 23:39] VITALS: BMI 30.4
--- NOTE | 2019-07-07 23:42 | PDOC.HHP ---
Hospitalist HPI - History of Present Illness Chest pain History of Present Illness: 88 yo female with Stage 4 lung cancer on chemotherapy presented to ER with family due to chest pain, SOB and cough. She reports that she was diagnosed with lung cancer in July, and is on chemotherapy every other month. Last session was about a month ago. She started experiencing 8/10 chest pain in the middle of the chest without any radiation 2 days ago. No aggravating or relieving factors. She also has back pain. She reports dry cough for 3 days. She reports shortness of breath for 3 days; initially, it was only with exertion. However, now, she is short of breath even with rest. She reports some fever and chills. No N/V/D/C or abdominal pain. No buring or pain with urination. No headache or recent weight changes. She reports feeling weak recently. ED Course: Given IV steroids and IV abx. Given duonebs with partial improvement. Hospitalist ROS - Review of Systems All other systems reviewed; all pertinent +/- noted in HPI/Subj Hospitalist History - Past Medical History Source: patient, family Heme/Onc: reports: Cancer (Stage 4 lung) - Past Surgical History Past Surgical History: reports: no pertinent history (reviewed) - Family History Family History: reports: no pertinent history (reviewed) - Social History Smoking Status: Former smoker (quit 15 yrs ago; 60 pack yr smoker) Tobacco Type: cigarettes Alcohol: reports: None Drugs: reports: none Living Situation: With Family Activity level: independent ambulation - Exam General Appearance: awake alert, ill appearing Eye: PERRL, anicteric sclera ENT: normocephalic atraumatic, no oropharyngeal lesions, moist mucosa Neck: supple, symmetric, no JVD, no thyromegaly, no lymphadenopathy, no carotid bruit Heart: no murmur, no gallops, no rubs, normal peripheral pulses Heart - other findings: tachycardia present Respiratory: tachypneic, wheezes (bilaterally) Respiratory - other findings: reduced air entry bilaterally; using accessory muscles of resp Gastrointestinal: soft, normal bowel sounds, no guarding, no rigidity, tender to palpation (LLQ) Extremities: no cyanosis, no edema Skin: normal turgor, no lesions, no rashes Skin - other findings: no decubitus ulcers Neurological: cranial nerve grossly intact, normal sensation to touch, no weakness, no focal deficits, no new deficit Psychiatric: normal affect, A&O x 3 Hospitalist Results - Labs Result Diagrams: 07/07/19 17:59 07/07/19 17:59 Lab results: WBC 3.9 thou/uL (4.8-10.8) L 07/07/19 17:59 Hgb 13.7 g/dL (12.0-16.0) 07/07/19 17:59 Hct 42.1 % (36.0-47.0) 07/07/19 17:59 MCV 90.1 fL (78.0-98.0) 07/07/19 17:59 Plt Count 161 thou/uL (130-400) 07/07/19 17:59 Neutrophils % 58.7 % (42.0-75.0) 07/07/19 17:59 Sodium 135 mmol/L (136-145) L 07/07/19 17:59 Potassium 4.4 mmol/L (3.5-5.1) 07/07/19 17:59 Chloride 101 mmol/L (98-107) 07/07/19 17:59 Carbon Dioxide 27 mmol/L (23-31) 07/07/19 17:59 BUN 18 mg/dL (9.8-20.1) 07/07/19 17:59 Creatinine 0.82 mg/dL (0.6-1.1) 07/07/19 17:59 Glucose 96 mg/dL (83-110) 07/07/19 17:59 Calcium 8.5 mg/dL (7.8-10.44) 07/07/19 17:59 Total Bilirubin 0.2 mg/dL (0.2-1.2) 07/07/19 17:59 AST 18 U/L (5-34) 07/07/19 17:59 ALT 12 U/L (8-55) 07/07/19 17:59 Alkaline Phosphatase 87 U/L (40-110) 07/07/19 17:59 Troponin I Less than 0.010 ng/mL (< 0.028) 07/07/19 21:18 B-Natriuretic Peptide 51.6 pg/mL (0-100) 07/07/19 17:59 Serum Total Protein 7.3 g/dL (6.0-8.3) 07/07/19 17:59 Albumin 3.6 g/dL (3.4-4.8) 07/07/19 17:59 - EKG Interpretation EKG: Personally reviewed - Sinus rhythm; Non-specific ST-T changes - Radiology Interpretation Chest x-ray Status: image reviewed by me (Hyperinflation; no consolidation or CP angle blunting) Hospitalist H&P A/P - Problem (1) COPD (chronic obstructive pulmonary disease) Status: Chronic Qualifiers: COPD type: COPD with acute exacerbation Qualified Code(s): J44.1 - Chronic obstructive pulmonary disease with (acute) exacerbation Assessment and Plan: Admit to inpatient status. High risk due to risk of worsening resp. failure that may need intubation and mech. ventilation Expected to stay in hospital at least 2 midnights Likely has undiagnosed COPD given 60 pack yr smoking history Suspect pneumonia given immunocompromised status IV abx, iv steroids and duonebs Inhalation steroids and brovana May need pulm consult out patient BIPAP HS & PRN for support (2) Lung cancer Code(s): C34.90 - MALIGNANT NEOPLASM OF UNSP PART OF UNSP BRONCHUS OR LUNG Status: Chronic Qualifiers: Laterality: unspecified laterality Lung location: unspecified part of lung Qualified Code(s): C34.90 - Malignant neoplasm of unspecified part of unspecified bronchus or lung Assessment and Plan: Follows with Dr. Motta regularly Out pt follow up for resumption of chemo after current episode resolves - Plan Plan: Code Status - FULL CODE Son is health care proxy
[2019-07-07] MEDS ORDERED: cefTRIAXone\\ROCEPHIN 1 GM in Sodium Chloride 0.9% 100 ML IVPB SCH (23:59)
[2019-07-08 01:06] LABS: Troponin I 0.016 ng/mL (< 0.028)
[2019-07-08 04:09] LABS: #Lymphocytes 0.6 thou/uL (1.20-3.40); #Monocytes 0.1 thou/uL (0.11-0.59); #Neutrophils 2.9 thou/uL (1.40-6.50); %Eosinophils 0.2 % (0.0-10.0); %Lymphocytes 16.5 % (21.0-51.0); %Neutrophils 81.4 % (42.0-75.0); Hemoglobin 13.7 g/dL (12.0-16.0); Mean Corpuscular HGB CONC 32.5 g/dL (32.0-36.0); Mean Corpuscular Hemoglobin 29.5 pg (27.0-31.0); Mean Corpuscular Volume 90.7 fL (78.0-98.0); Mean Platelet Volume 7.8 fL (7.4-10.4); Platelet Count 158 thou/uL (130-400); RBC Distribution Width 13.1 % (11.5-14.5); Red Blood Cell (RBC) Count 4.63 mill/uL (4.20-5.40); White Blood Cell (WBC) Count 3.6 thou/uL (4.8-10.8)
[2019-07-08 04:11] LABS: Strep pneumo Urine Ag NEGATIVE (NEGATIVE)
[2019-07-08 04:12] LABS: Legionella Urinary Ag Negative (Negative)
[2019-07-08 04:17] LABS: ALT (SGPT) 12 U/L (8-55); AST (SGOT) 18 U/L (5-34); Albumin 3.6 g/dL (3.4-4.8); Alkaline Phosphatase 84 U/L (40-110); Anion Gap 13 mmol/L (10-20); BUN (Urea Nitrogen) 19 mg/dL (9.8-20.1); Bilirubin, Total 0.2 mg/dL (0.2-1.2); Calc. Creatinine Clearance 50 mL/min (70-130); Calcium 8.6 mg/dL (7.8-10.44); Carbon Dioxide 24 mmol/L (23-31); Chloride 104 mmol/L (98-107); Estimated GFR-MDRD 62; Globulin 3.7 g/dL (2.4-3.5); Glucose 230 mg/dL (83-110); Potassium 3.9 mmol/L (3.5-5.1); Protein, Total 7.3 g/dL (6.0-8.3); Sodium 137 mmol/L (136-145)
[2019-07-08] MEDS: Budesonide 0.25 MG/2 ML NEB INH SCH ×2 (06:25→18:25)
[2019-07-08] MEDS: Arformoterol 15 MCG/2 ML NEB NEB SCH ×2 (06:25→18:23)
[2019-07-08] MEDS: Floranex Packet PO SCH (08:40)
[2019-07-08] MEDS: methylPREDNISolone Sod Succ 40 MG VIAL IVP SCH ×2 (08:40→20:49)
[2019-07-08] MEDS: Azithromycin 250 MG TAB PO SCH (08:40)
[2019-07-08] MEDS: Enoxaparin Sodium 40 MG/0.4 ML SYRINGE SC SCH (08:41)
--- NOTE | 2019-07-08 12:28 | CON ---
DATE OF CONSULTATION: 07/08/2019 This is 30 minutes time, of that time greater than 50% spent with the patient and/or the patient's unit in the hospital. REASON FOR CONSULTATION: Shortness of breath. HISTORY OF PRESENT ILLNESS: An 88-year-old, who is hospitalized with increasing cough, congestion, and productive sputum that is whitish in color. Symptoms started 3 days ago. She was brought to the [facility] last night, presuming that she needed BiPAP, but she did not require for very long. She is currently receiving intermittent immunotherapy for stage IV lung cancer with Keytruda. She feels better today and has no acute complaints. PAST MEDICAL HISTORY: 1. Adenocarcinoma, stage IV. 2. Probable COPD. PAST SURGICAL HISTORY: None. FAMILY MEDICAL HISTORY: Unremarkable. SOCIAL HISTORY: Quit smoking 15 years ago after smoking 60 pack years. Does not consume alcohol. Does not use illicit drugs. MEDICATIONS: Prior to admission, none listed. Inpatient medications: 1. Acetaminophen. 2. Acidophilus. 3. DuoNeb. 4. Brovana. 5. Zithromax. 6. Budesonide. 7. Ceftriaxone. 8. Enoxaparin. 9. Methylprednisolone. 10. Ondansetron. REVIEW OF SYSTEMS: 10-point review of systems is otherwise negative. PHYSICAL EXAMINATION: VITAL SIGNS: Temperature 96.8, pulse 80, blood pressure 170/69, O2 saturation 95%. HEENT: Unremarkable. NECK: No adenopathy or JVD. LUNGS: She has coarse rhonchi with wheezes bilaterally. CARDIAC: S1 and S2. Regular. ABDOMEN: Soft, nontender to palpation. EXTREMITIES: No clubbing, cyanosis, or edema. LABORATORY DATA: White blood cell count 3.6, hematocrit 42, platelet count 158. Sodium 137, potassium 3.9, BUN 19, creatinine 0.9, glucose 230. IMAGING STUDIES: Chest x-ray shows bilateral densities. Also reviewed CT scan from April. ASSESSMENT: 1. Chronic obstructive pulmonary disease/acute bronchitis with exacerbation. 2. Stage IV adenocarcinoma. PLAN: I would treat this as a bronchitis with steroids, nebulization treatments, and antibiotics. She is safe to transfer to the floor. I would suggest notifying her cancer team that she is in the hospital. Job ID: [id number]
--- NOTE | 2019-07-08 22:09 | PDOC.HOSPP ---
- Subjective Encounter Date: 07/08/19 Encounter Time: 13:30 Subjective: overnight, significantly improved and back at baseline NC and saturation, no tachypnea but mild use of accessory muscles. Has no complaints. - Objective Vital Signs & Weight: Vital Signs (12 hours) Temp Pulse Resp BP Pulse Ox 07/08/19 20:00 98.3 F 87 16 125/62 92 L 07/08/19 18:23 94 20 94 L 07/08/19 16:16 97.9 F 79 18 134/63 94 L 07/08/19 15:47 66 18 99 07/08/19 12:54 97.2 F L 82 20 138/72 95 07/08/19 11:12 97.8 F Weight Weight 129 lb 2 oz Most Recent Monitor Data Heart Rate from ECG 80 NIBP 117/69 NIBP BP-Mean 85 Respiration from ECG 20 SpO2 95 I&O: 07/07/19 07/08/19 07/09/19 06:59 06:59 06:59 Intake Total 110 490 Output Total 350 Balance -240 490 Result Diagrams: 07/08/19 03:26 07/08/19 03:26 Hospitalist ROS - Review of Systems Constitutional: denies: fever, chills, sweats, weakness, malaise, other Respiratory: reports: cough, SOB with excertion, wheezing. denies: shortness of breath Cardiovascular: denies: chest pain, palpitations, orthopnea, paroxysmal noc. dyspnea, edema, light headedness Gastrointestinal: denies: nausea, vomiting, abdominal pain, diarrhea, constipation, melena, hematochezia Genitourinary: denies: dysuria, frequency, incontinence, hematuria, retention - Medication Medications: Active Medications Generic Name Dose Route Start Last Admin Trade Name Freq PRN Reason Stop Dose Admin Acidophilus 1 gm 07/08/19 09:00 07/08/19 08:40 Floranex PO 1 gm DAILY ANASTASIYA Administration Albuterol/Ipratropium 3 ml 07/08/19 14:30 07/08/19 18:24 Duoneb NEB 3 ml [id number] ANASTASIYA Administration Arformoterol Tartrate 15 mcg 07/08/19 06:30 07/08/19 18:23 Brovana NEB 15 mcg BID-RT ANASTASIYA Administration Azithromycin 500 mg 07/08/19 09:00 07/08/19 08:40 Zithromax PO 500 mg DAILY ANASTASIYA Administration Budesonide 0.25 mg 07/08/19 06:30 07/08/19 18:25 Pulmicort Neb Solution INH 0.25 mg BID-RT ANASTASIYA Administration Enoxaparin Sodium 40 mg 07/08/19 09:00 07/08/19 08:41 Lovenox SC 40 mg 0900 ANASTASIYA Administration Ceftriaxone Sodium 1 gm/ 100 mls @ 200 mls/hr 07/07/19 23:59 07/08/19 00:24 Sodium Chloride IVPB 100 mls 2359 ANASTASIYA Administration Methylprednisolone Sodium Succinate 40 mg 07/08/19 09:00 07/08/19 20:49 Solu-Medrol IVP 40 mg BID ANASTASIYA Administration - Exam General Appearance: NAD, awake alert Eye: PERRL ENT: normocephalic atraumatic Neck: no JVD Heart: no gallops Heart - other findings: tachycardic, normal rhythm Respiratory: wheezes Respiratory - other findings: diffuse inspiratory wheezing, mild use of accessory muscles Gastrointestinal: soft, non-tender, non-distended, normal bowel sounds Extremities: no edema Neurological: cranial nerve grossly intact Musculoskeletal: normal tone, normal strength Psychiatric: normal affect, normal behavior, A&O x 3 Hosp A/P - Plan (1) COPD (chronic obstructive pulmonary disease) Status: Chronic Qualifiers: COPD type: COPD with acute exacerbation Qualified Code(s): J44.1 - Chronic obstructive pulmonary disease with (acute) exacerbation Assessment and Plan: significantly improved, breathing and satting well on 2L NC (2) Lung cancer Code(s): C34.90 - MALIGNANT NEOPLASM OF UNSP PART OF UNSP BRONCHUS OR LUNG Status: Chronic Qualifiers: Laterality: unspecified laterality Lung location: unspecified part of lung Qualified Code(s): C34.90 - Malignant neoplasm of unspecified part of unspecified bronchus or lung Assessment and Plan: Follows with Dr. Motta regularly Out pt follow up for resumption of chemo after current episode resolves - Plan continue treatment of COPD transfer to inpatient medical floor Plan: Code Status - FULL CODE Son is health care proxy
[2019-07-09 06:02] LABS: #Lymphocytes 0.4 thou/uL (1.20-3.40); #Monocytes 0.4 thou/uL (0.11-0.59); #Neutrophils 5.8 thou/uL (1.40-6.50); %Eosinophils 0.1 % (0.0-10.0); %Lymphocytes 6.5 % (21.0-51.0); %Monocytes 6.7 % (0.0-10.0); %Neutrophils 86.7 % (42.0-75.0); Hemoglobin 12.4 g/dL (12.0-16.0); Mean Corpuscular HGB CONC 31.2 g/dL (32.0-36.0); Mean Corpuscular Hemoglobin 28.1 pg (27.0-31.0); Mean Corpuscular Volume 90.1 fL (78.0-98.0); Platelet Count 161 thou/uL (130-400); RBC Distribution Width 13.1 % (11.5-14.5); Red Blood Cell (RBC) Count 4.41 mill/uL (4.20-5.40); White Blood Cell (WBC) Count 6.6 thou/uL (4.8-10.8)
[2019-07-09 06:25] LABS: Anion Gap 12 mmol/L (10-20); BUN (Urea Nitrogen) 22 mg/dL (9.8-20.1); Calc. Creatinine Clearance 48 mL/min (70-130); Calcium 8.6 mg/dL (7.8-10.44); Carbon Dioxide 23 mmol/L (23-31); Chloride 105 mmol/L (98-107); Estimated GFR-MDRD 70; Glucose 175 mg/dL (83-110); Magnesium 1.9 mg/dL (1.6-2.6); Potassium 4.2 mmol/L (3.5-5.1); Sodium 136 mmol/L (136-145)
[2019-07-09] MEDS: Budesonide 0.25 MG/2 ML NEB INH SCH (07:22)
[2019-07-09] MEDS: Arformoterol 15 MCG/2 ML NEB NEB SCH (07:22)
[2019-07-09] MEDS ORDERED: predniSONE 20 MG TAB PO SCH (08:00)
[2019-07-09] MEDS: Azithromycin 250 MG TAB PO SCH (08:17)
[2019-07-09] MEDS: Enoxaparin Sodium 40 MG/0.4 ML SYRINGE SC SCH (08:17)
--- NOTE | 2019-07-09 09:20 | PRG ---
DATE OF SERVICE: 07/09/2019 SUBJECTIVE: The patient feels good and wants to be discharged. OBJECTIVE: VITAL SIGNS: Temperature 97.5, pulse 70, respirations 16, O2 saturation 98%, blood pressure 122/61. HEENT: Unremarkable. NECK: No adenopathy or JVD. LUNGS: Few expiratory wheezes. CARDIAC: S1 and S2. Regular. ABDOMEN: Soft. EXTREMITIES: No edema. ASSESSMENT: 1. Stage IV adenocarcinoma. 2. Chronic obstructive pulmonary disease with exacerbation. PLAN: She is stable for discharge to home on a tapered course of steroids and short course of antibiotics. She can follow up with her primary care provider. No further recommendations. I will sign off. Job ID: [id number]
[2019-07-09] MEDS: Floranex Packet PO SCH (09:35)
[2019-07-09 16:36] VITALS: BP 127/78; TEMP 98
--- NOTE | 2019-07-10 10:09 | DIS ---
DATE OF ADMISSION: 07/07/2019 DATE OF DISCHARGE: 07/09/2019 HOSPITAL COURSE: Presley is an 88-year-old female with a medical history of lung cancer and 60 pack-year smoking history, who presented for shortness of breath. She was diagnosed with likely new COPD. She was initially admitted to the intermediate care unit, because she required BiPAP. However, after respiratory treatments and steroids, she promptly improved, and was transferred to the floor. The patient did not have insurance, so prior to discharge, she was supplemented with a discount card as well as new medications, Z-Johan, prednisone, and albuterol inhaler, that were all confirmed to be affordable to the patient's son at bedside prior to discharge. On the day of discharge, she was breathing well and saturating in the high 90s on room air. She was discharged with followup appointment with a new primary care physician and extensive education regarding use of inhalers to her son as well as education regarding the new medication regimen. PHYSICAL EXAMINATION: VITAL SIGNS: On discharge, vitals were unremarkable on exam. GENERAL: She appeared emaciated, ill-appearing, awake, and alert. EYES: PERRL, anicteric sclerae. ENT: Normocephalic and atraumatic. Moist mucosa. HEART: Normal. No gallops, no rubs. Normal peripheral pulses. Regular rate and rhythm. RESPIRATORY: Not tachypneic. No wheezing. Clear to auscultation bilaterally. GI: Soft, normal bowel sounds. No guarding, no rigidity, no tenderness. SKIN: No decubitus ulcers. NEUROLOGICAL: Cranial nerves intact. Normal sensation to touch. No weakness. No focal deficits. PSYCHIATRIC: Normal affect. Normal moods. Alert and oriented x2, not to time. ASSESSMENT AND PLAN: 1. Ms. Sherwood is an 88-year-old with a medical history of lung cancer, who presents with shortness of breath, likely due to newly diagnosed chronic obstructive pulmonary disease. The patient was started on breathing treatments and steroids and improved promptly. She was discharged home after extensive education regarding inhaler technique with albuterol as well as daily administration of azithromycin and prednisone for the following 4 days. 2. Lung cancer. The patient follows with Dr. Motta regularly. She will resume followup appointment within after discharge. Job ID: [id number]
--- NOTE | 2019-07-12 21:37 | PQF ---
BrianchalinoKhalida, ARMANDO [id number] CLINICAL DOCUMENTATION CLARIFICATION FORM: POST DISCHARGE Addendum to original discharge summary date: ____ Late entry note date: __ DATE:07/12/2019 ATTN:ARMANDO GILLETTE Please exercise your independent, professional judgment in responding to the clarification form. Clinical indicators are provided on the bottom of this form for your review Please check appropriate box(s) to clarify if the following diagnosis has been ruled in or ruled out:Pneumonia [ ] Ruled in diagnosis [ ] Continue to treat [ ] Resolved [ x ] Ruled out diagnosis [ ] Cannot rule out diagnosis [ ] Other diagnosis [ ] Unable to determine For continuity of documentation, please document condition throughout progress notes and discharge summary. Thank You. CLINICAL INDICATORS - SIGNS / SYMPTOMS / LABS Pt reports cough, SOB started 2 Days-Documented in Ed on 07/07 by Pio Williamson Dyspnea--Documented in ED on 07/07 by Pio Williamson WBC-3.9-Documented in H&P on 07/07 By Gelacio Verma MD Suspected pneumonia given immunocompromised status-Documented in H&P on 07/07 By Gelacio Verma MD COPD Exacerbation -Documented in H&P on 07/07 By Gelacio Verma MD No lobar consolidation -Documented in Chest X smiley 07/07 RISK FACTORS Lung cancer-Documented in H&P on 07/07 By Gelacio Verma MD COPD Exacerbation -Documented in H&P on 07/07 By Gelacio Verma MD TREATMENTS Rocephin 1 gm IV-Documented in Medication snapshot [employer] Winform Viewer (This form is maintained as a part of the permanent medical record) 2014 [employer]. All Rights Reserved [email or web address] [phone] [email or web address]
== END 2019-07-09 17:48 | disposition home or self-care (01) | DRG 191 ==
LOC: ERS 17:08 → OBSVTOIN 21:01 → 2SW 21:01 → IMCU/EMU 07-08 02:21 → T4-B 07-08 13:04
PROVIDERS: ADMIT Internal Medicine Sleep Medicine; ATTEND Internal Medicine
DX: J44.1 Chronic obstructive pulmonary disease with (acute) exacerbation (principal); C34.90 Malignant neoplasm of unspecified part of unspecified bronchus or lung; Z87.891 Personal history of nicotine dependence; R40.2362 Coma scale, best motor response, obeys commands, at arrival to emergency department; R40.2142 Coma scale, eyes open, spontaneous, at arrival to emergency department; R40.2252 Coma scale, best verbal response, oriented, at arrival to emergency department
CPT/HCPCS: 36415; 36416; 71046; 80048; 80053; 83735; 83880; 84484; 85025; 87449; 87899; 93005; 94640; 94660; 94760; J0696; J1650; J2920; J3490; J7512; J7611; J7620; J7626

== ENCOUNTER 2019-07-16 11:05 | Day surgery (SDC) | payer OTHER ==
[2019-07-16] MEDS ORDERED: Sodium Chloride 0.9% 20 ML ONE (11:11)
[2019-07-16 12:29] VITALS: BP 122/56; TEMP 98
== END 2019-07-16 13:22 | disposition home or self-care (01) ==
LOC: ONC/OP 11:05
PROVIDERS: ATTEND Internal Medicine Hematology & Oncology
DX: Z51.12 Encounter for antineoplastic immunotherapy (principal); C34.32 Malignant neoplasm of lower lobe, left bronchus or lung
CPT/HCPCS: 96413

== ENCOUNTER 2019-08-04 08:50 | Outpatient (CLI) | payer OTHER ==
--- NOTE | 2019-08-04 10:07 | CT ---
CT OF THE CHEST, ABDOMEN AND PELVIS WITH IV CONTRAST INDICATION: History of lung cancer; evaluate response to therapy COMPARISON: CT the chest, abdomen and pelvis dated May 11, 2019, CT of the chest dated , CT the chest dated 11/19/2018 and a CTA of the chest dated 08/07/2018 FINDINGS: CHEST: Lungs: The large pleural-based left lower lobe mass lesion demonstrates less convexity along its oute r margin than on the prior exam but is slightly enlarged when comparing similar axial slices. The lesion now measures 3.5 x 3 cm were previous in measured 3.1 x 2.7 cm. The additional pleural-based m ass within the right middle lobe with poorly defined margins and surrounding consolidation now measures approximately 2.4 x 2.0 cm were previously measured 2.2 x 1.7 cm. No new suspicious pulmonar y nodule is evident. Scattered emphysema is similar appearing. Pleural parenchymal opacities involving the lung apices is similar appearing. Areas of chronic peripheral interstitial thickening i nvolving the left lower lobe and lingula are stable. The previously seen 3.2 mm subpleural pulmonary nodule in the posterior medial right lower lobe is slightly enlarged measuring 4.2 mm. Pleural space: No effusion. Mediastinum: The enlarged AP window lymph node is stable measuring 1.4 cm. The right paratracheal lym ph node is stable measuring 9.4 mm. The right suprahilar hilar lymph node is stable measuring 1.6 cm. The left hilar lymph node is stable measuring 7.3 mm. There are coronary artery and thoracic aort ic calcifications. Axilla: No pathologically enlarged lymph nodes. ABDOMEN: Liver: The lobulated cyst seen within the medial left hepatic lobe is stable appearing. Gallbladder: Cholelithiasis is stable Pancreas: Normal. Adrenal glands: Normal. Spleen: Normal. Kidneys and ureters: Small cyst involving the superior pole the right kidney is stable. No focal left renal lesion. No hydronephrosis. Vasculature: There are moderate vascular calcifications seen involving the visualized vasculature. Lymph nodes:Surgical clips within the retroperitoneum are stable appearing. No pathologically enlarge d lymph nodes are seen within the retroperitoneum or upper abdomen. Free fluid in abdomen:No free fluid is evident. PELVIS: Small and large bowel: There is mild amount of retained stool within the colon. Small bowel is of nor mal caliber. Appendix:Normal Bladder: Partially decompressed Rectal and perirectal soft tissues:Normal. Reproductive structures: Surgically absent Free fluid in pelvis: No free fluid is evident. Lymphadenopathy pelvis: No lymphadenopathy is evident. Osseous structures: There is diffuse osteopenia. No acute fracture or subluxation demonstrated. No peraza spicious osteolytic or osteoblastic lesion is identified. There is scattered degenerative and osteoarthritic changes. Soft tissues:Normal. IMPRESSION: 1. Slight interval enlargement of the pleural-based parenchymal opacities consistent with treated pul monary masses. The left lower lobe pleural-based mass does demonstrate slightly diminished convex margins. The small 3 mm pulmonary nodule in the right lower lobe has slightly enlarged measuring up t o 4.2 mm. As a conservative measure, a follow-up CT of the thorax in 6-8 weeks to document stability or change in the pulmonary target lesions is recommended. 2. Mediastinal and hilar lymphadenopathy is stable. 3. No evidence of metastatic disease to the abdomen or pelvis. 4. Stable hepatic cyst, right renal cyst and cholelithiasis
[2019-08-04] MEDS ORDERED: Iopamidol-370 76% 500 ML 1 ML ONE (14:39)
== END 2019-08-04 08:51 | disposition home or self-care (01) ==
LOC: BICCT 08:50
PROVIDERS: ATTEND Internal Medicine Hematology & Oncology
DX: C34.90 Malignant neoplasm of unspecified part of unspecified bronchus or lung (principal); R91.8 Other nonspecific abnormal finding of lung field; R91.1 Solitary pulmonary nodule; R59.0 Localized enlarged lymph nodes; K80.20 Calculus of gallbladder without cholecystitis without obstruction; K76.89 Other specified diseases of liver; N28.1 Cyst of kidney, acquired
CPT/HCPCS: 71260; 74177; Q9967

== ENCOUNTER 2019-08-06 10:39 | Day surgery (SDC) | payer OTHER | END 2019-08-06 14:12 | disposition home or self-care (01) | LOC: ONC/OP 10:39 | PROVIDERS: ATTEND Internal Medicine Hematology & Oncology | DX: Z51.12 Encounter for antineoplastic immunotherapy (principal); C34.32 Malignant neoplasm of lower lobe, left bronchus or lung | CPT/HCPCS: 96413 ==

== ENCOUNTER → 2019-08-27 | Day surgery (SDC) | payer OTHER ==
[~2019-08-27] MED LIST changes: +Sodium Chloride 0.9% 20 ML ONE
[2019-08-27 11:18] VITALS: BP 162/89; TEMP 98.1
== END | disposition home or self-care (01) ==
LOC: ONC/OP 10:59
PROVIDERS: ATTEND Internal Medicine Hematology & Oncology
DX: Z51.12 Encounter for antineoplastic immunotherapy (principal); C34.32 Malignant neoplasm of lower lobe, left bronchus or lung; F17.210 Nicotine dependence, cigarettes, uncomplicated
CPT/HCPCS: 96413

== ENCOUNTER 2019-09-18 09:49 | Day surgery (SDC) | payer OTHER ==
[~2019-09-18 09:49] MED LIST changes: -Sodium Chloride 0.9% 20 ML ONE
[2019-09-18 10:17] VITALS: BP 136/65; TEMP 98.5
[2019-09-18] MEDS ORDERED: Sodium Chloride 0.9% 20 ML ONE (10:40)
== END 2019-09-18 12:09 | disposition home or self-care (01) ==
LOC: ONC/OP 09:49
PROVIDERS: ATTEND Internal Medicine Hematology & Oncology
DX: Z51.12 Encounter for antineoplastic immunotherapy (principal); C34.32 Malignant neoplasm of lower lobe, left bronchus or lung
CPT/HCPCS: 96413

== ENCOUNTER 2019-10-01 13:42 | Outpatient (CLI) | payer OTHER ==
--- NOTE | 2019-10-01 14:46 | CT ---
EXAM: CT Chest W Con PROVIDED CLINICAL HISTORY: Lung cancer COMPARISON: CT 08/04/2019 FINDINGS: The heart, pericardium and great vessels demonstrate a stable CT appearance. Left lower lobe and righ t middle lobe parenchymal opacities appear similar to prior. Persistent subpleural interstitial thickening involving the left upper lobe laterally. Interval development of scattered small foci of g roundglass opacity predominantly in subpleural locations. There is no pleural fluid or pneumothorax apparent. There is no evidence for interval thoracic lymph node enlargement. The visualized portions of the upper abdomen demonstrate a stable splenule adjacent to the left renal margin. The osseous structures demonstrate no concerning lytic or blastic lesions. IMPRESSION: 1. Interval development of scattered small patchy foci of groundglass opacity, peripherally located f or the most part. These are nonspecific and can be seen in the setting of infectious and noninfectious processes, including viral pneumonia. Neoplastic etiologies are felt less likely. Catie nued surveillance recommended. 2. Otherwise, no significant interval change.
== END 2019-10-01 13:43 | disposition home or self-care (01) ==
LOC: SCSCT 13:42
PROVIDERS: ATTEND Internal Medicine Hematology & Oncology
DX: C34.32 Malignant neoplasm of lower lobe, left bronchus or lung (principal); R91.8 Other nonspecific abnormal finding of lung field
CPT/HCPCS: 71260

== ENCOUNTER 2019-10-09 10:18 | Day surgery (SDC) | payer OTHER ==
[2019-10-09] MEDS ORDERED: Sodium Chloride 0.9% 20 ML ONE (10:57)
[2019-10-09 11:04] VITALS: BP 166/71; TEMP 97.9
== END 2019-10-09 11:43 | disposition home or self-care (01) ==
LOC: ONC/OP 10:18
PROVIDERS: ATTEND Internal Medicine Hematology & Oncology
DX: Z51.12 Encounter for antineoplastic immunotherapy (principal); C34.32 Malignant neoplasm of lower lobe, left bronchus or lung
CPT/HCPCS: 96413

== ENCOUNTER 2019-10-30 09:34 | Day surgery (SDC) | payer OTHER ==
[2019-10-30] MEDS ORDERED: Sodium Chloride 0.9% 20 ML ONE (09:51)
[2019-10-30 10:02] VITALS: BP 198/84; TEMP 98.2
== END 2019-10-30 12:05 | disposition home or self-care (01) ==
LOC: ONC/OP 09:34
PROVIDERS: ATTEND Internal Medicine Hematology & Oncology
DX: Z51.12 Encounter for antineoplastic immunotherapy (principal); C34.32 Malignant neoplasm of lower lobe, left bronchus or lung
CPT/HCPCS: 96413

== ENCOUNTER 2019-11-19 10:07 | Day surgery (SDC) | payer SELFPAY ==
[2019-11-19] MEDS ORDERED: Sodium Chloride 0.9% 20 ML ONE (10:32)
== END 2019-11-19 11:26 | disposition home or self-care (01) ==
LOC: ONC/OP 10:07
PROVIDERS: ATTEND Internal Medicine Hematology & Oncology
DX: Z51.12 Encounter for antineoplastic immunotherapy (principal); C34.32 Malignant neoplasm of lower lobe, left bronchus or lung
CPT/HCPCS: 96413

== ENCOUNTER 2019-12-10 09:56 | Day surgery (SDC) | payer SELFPAY ==
[2019-12-10] MEDS ORDERED: Sodium Chloride 0.9% 20 ML ONE (10:00)
[2019-12-10 10:53] VITALS: BP 138/64; TEMP 97.9
== END 2019-12-10 11:59 | disposition home or self-care (01) ==
LOC: ONC/OP 09:56
PROVIDERS: ATTEND Internal Medicine Hematology & Oncology
DX: Z51.12 Encounter for antineoplastic immunotherapy (principal); C34.32 Malignant neoplasm of lower lobe, left bronchus or lung
CPT/HCPCS: 96413

== ENCOUNTER 2020-01-21 11:05 | Day surgery (SDC) | payer OTHER ==
[2020-01-21] MEDS ORDERED: Sodium Chloride 0.9% 20 ML ONE (11:12)
[2020-01-21 11:18] VITALS: BP 177/74; TEMP 98.8
== END 2020-01-21 12:49 | disposition home or self-care (01) ==
LOC: ONC/OP 11:05
PROVIDERS: ATTEND Internal Medicine Hematology & Oncology
DX: Z51.12 Encounter for antineoplastic immunotherapy (principal); C34.32 Malignant neoplasm of lower lobe, left bronchus or lung
CPT/HCPCS: 96413

== ENCOUNTER 2020-02-11 10:05 | Day surgery (SDC) | payer OTHER, SELFPAY ==
--- NOTE | 2020-02-11 10:32 | RAD ---
3 views left shoulder: 02/11/2020 COMPARISON: None HISTORY: Three-week history of pain FINDINGS: Mild degenerative change of the left acromioclavicular joint. No widening of the acromiocla vicular or coracoclavicular interspace. No displaced fracture or evidence of dislocation is seen. Peripheral increased density with pleural thickening noted within the mid left hemithorax, better ass essed on the 12/24/[address] Impression: No acute fracture or evidence of dislocation.
[2020-02-11] MEDS ORDERED: Sodium Chloride 0.9% 20 ML ONE (10:39)
[2020-02-11 11:38] VITALS: BP 182/80; TEMP 97.7
== END 2020-02-11 11:40 | disposition home or self-care (01) ==
LOC: RAD 10:05 → ONC/OP 11:40
PROVIDERS: ATTEND Internal Medicine Hematology & Oncology
DX: Z51.12 Encounter for antineoplastic immunotherapy (principal); C34.32 Malignant neoplasm of lower lobe, left bronchus or lung
CPT/HCPCS: 96413

== ENCOUNTER 2020-03-03 10:21 | Day surgery (SDC) | payer OTHER ==
[2020-03-03] MEDS ORDERED: Sodium Chloride 0.9% 20 ML ONE (10:46)
[2020-03-03 11:29] VITALS: BP 174/76; TEMP 97.6
== END 2020-03-03 12:13 | disposition home or self-care (01) ==
LOC: ONC/OP 10:21
PROVIDERS: ATTEND Internal Medicine Hematology & Oncology
DX: Z51.12 Encounter for antineoplastic immunotherapy (principal); C34.32 Malignant neoplasm of lower lobe, left bronchus or lung
CPT/HCPCS: 96413

== ENCOUNTER 2020-03-22 08:46 | Outpatient (CLI) | payer OTHER ==
[2020-03-22] MEDS ORDERED: Iopamidol 370 76% 100 ML VIAL ONE (10:25)
--- NOTE | 2020-03-22 12:17 | CT ---
CT CHEST WITH IV CONTRAST: Date: 03/22/2020 HISTORY: Lung cancer. COMPARISON: 12/24/2019 and 10/01/2019. FINDINGS: Mediastinal and bilateral hilar lymphadenopathy is again seen. Hilar lymphadenopathy is approximately 1.0 cm on either side. Right paratracheal lymph node measures 12.0 mm, AP window lymph node measures 13.0 mm, subcarinal lymph node measures 13.0 mm, and right precarinal lymph node measures 10.0 mm. The AP window lymph node measured 16.0 mm on 12/24/2019 and 14.0 mm on 10/01/2019. Remainder of the l ymph nodes are otherwise stable. Wedge-shaped parenchymal densities in the left lower lobe and right middle lobe and irregular nodular densities in the lung apices are stable. Smaller pleural based densities are also stable. No pleural or pericardial effusions are seen. Degenerative changes in the spine again seen. No osteolytic or osteoblastic lesions are identified. Upper abdominal tomograms demonstrate stable lobulated cyst in the left hepatic lobe and cholelithias is. IMPRESSION: Stable exam. POS: OFF
== END 2020-03-22 08:47 | disposition home or self-care (01) ==
LOC: BICCT 08:46
PROVIDERS: ATTEND Internal Medicine Hematology & Oncology
DX: C34.32 Malignant neoplasm of lower lobe, left bronchus or lung (principal)
CPT/HCPCS: 71260; Q9967

== ENCOUNTER → 2020-03-24 | Day surgery (SDC) | payer OTHER ==
[~2020-03-24] MED LIST changes: +Sodium Chloride 0.9% 20 ML ONE
[2020-03-24 11:08] VITALS: BP 167/72; TEMP 98.4
== END ==
LOC: ONC/OP 10:24
PROVIDERS: ATTEND Internal Medicine Hematology & Oncology
DX: Z51.12 Encounter for antineoplastic immunotherapy (principal); C34.32 Malignant neoplasm of lower lobe, left bronchus or lung
CPT/HCPCS: 96413

== ENCOUNTER 2020-04-21 09:28 | Day surgery (SDC) | payer OTHER ==
[~2020-04-21 09:28] MED LIST changes: -Pembrolizumab 200 MG in Sodium Chloride 0.9% 250 ML 250 ML IV SCH; +Pembrolizumab 400 MG in Sodium Chloride 0.9% 250 ML 250 ML IV SCH; -Sodium Chloride 0.9% 20 ML ONE
[2020-04-21] MEDS ORDERED: Sodium Chloride 0.9% 20 ML ONE (09:31)
== END 2020-04-21 11:05 | disposition home or self-care (01) ==
LOC: ONC/OP 09:28
PROVIDERS: ATTEND Internal Medicine Hematology & Oncology
DX: Z51.12 Encounter for antineoplastic immunotherapy (principal); C34.32 Malignant neoplasm of lower lobe, left bronchus or lung
CPT/HCPCS: 96413

== ENCOUNTER 2020-06-02 10:45 | Day surgery (SDC) | payer OTHER ==
[2020-06-02 11:05] VITALS: BP 162/73; TEMP 97.9
== END 2020-06-02 12:02 | disposition home or self-care (01) ==
LOC: ONC/OP 10:45
PROVIDERS: ATTEND Internal Medicine Hematology & Oncology
DX: Z51.12 Encounter for antineoplastic immunotherapy (principal); C34.32 Malignant neoplasm of lower lobe, left bronchus or lung
CPT/HCPCS: 96413

== ENCOUNTER 2020-07-15 09:01 | Outpatient (CLI) | payer SELFPAY ==
--- NOTE | 2020-07-15 11:05 | CT ---
CT CHEST WITH CONTRAST CLINICAL INDICATION: Malignant neoplasm of left bronchus. Lung cancer, evaluate for response to treatment. COMPARISON: 03/22/2020 and 12/24/2019 FINDINGS: Aorta: Vascular calcifications are seen in the thoracic aorta without aortic dissection or aneurysm s een. Lungs: Wedge-shaped parenchymal density/areas of consolidation are again seen in the left lower lobe and right middle lobe as well as stable nodular and slight spiculated densities present in each lung apex stable peripherally located interstitial densities on the left and involving both the left upper and left lower lobe are again seen. Stable 4 mm pulmonary nodule is seen at the posteromedial right lower lobe with a few irregular subpleural nodular densities are also seen posterior right lowe r lobe stable from prior exam. No new discrete pulmonary nodule or mass is seen. Calcified granuloma right upper lobe is again noted. Mediastinum: Mediastinal and hilar lymphadenopathy is again seen. Pretracheal lymph node measures 13 mm, left paratracheal lymph node measures 14 mm, subcarinal lymph node measures 14 mm, right hilar lymph node measures 12 mm, and left hilar lymph node measures 10 mm. Measurements are not significant ly changed when compared to the prior exam. No new enlarged lymph nodes are seen within the mediastinum or either hilar region. Thyroid gland: Normal CT appearance. Osseous structures: Multilevel degenerative changes are seen in the thoracic spine. No suspicious lyt ic or sclerotic osseous lesions are seen. Chest wall: No abnormality visualized. Upper abdomen: Stable lobulated left hepatic lobe cyst as well as stable gallbladder calculus and sta ble superior pole right renal cyst. IMPRESSION: 1. Stable parenchymal lung changes with stable wedge-shaped parenchymal densities in the left lower a nd right middle lobes with stable irregular nodular and slightly spiculated densities in each lung apex. Stable pleural-based nodular densities and pulmonary nodule right lower lobe are again seen. Amanda ng changes are not significantly changed, and no new pulmonary nodule or mass is visualized. 2. Mediastinal and bilateral hilar lymphadenopathy not significantly changed. 3. Cholelithiasis.
[2020-07-15] MEDS ORDERED: Iopamidol 370 76% 100 ML VIAL ONE (11:48)
== END 2020-07-15 09:02 | disposition home or self-care (01) ==
LOC: CT 09:01
PROVIDERS: ATTEND Internal Medicine Hematology & Oncology
DX: C34.32 Malignant neoplasm of lower lobe, left bronchus or lung (principal); J98.4 Other disorders of lung; R59.0 Localized enlarged lymph nodes; K80.20 Calculus of gallbladder without cholecystitis without obstruction
CPT/HCPCS: 71260; Q9967

== ENCOUNTER 2020-07-25 09:59 | Day surgery (SDC) | payer SELFPAY ==
[2020-07-25] MEDS ORDERED: Sodium Chloride 0.9% 20 ML ONE (10:06)
[2020-07-25 10:44] VITALS: BP 171/88; TEMP 97.6
== END 2020-07-25 11:31 | disposition home or self-care (01) ==
LOC: ONC/OP 09:59
PROVIDERS: ATTEND Internal Medicine Hematology & Oncology
DX: Z51.12 Encounter for antineoplastic immunotherapy (principal); C34.32 Malignant neoplasm of lower lobe, left bronchus or lung
CPT/HCPCS: 96413; J7050; J9271

== ENCOUNTER 2020-09-05 10:08 | Day surgery (SDC) | payer SELFPAY ==
[2020-09-05 10:39] VITALS: BP 146/66; TEMP 98
[2020-09-05] MEDS ORDERED: Sodium Chloride 0.9% 20 ML ONE (10:52)
== END 2020-09-05 12:20 | disposition home or self-care (01) ==
LOC: ONC/OP 10:08
PROVIDERS: ATTEND Internal Medicine Hematology & Oncology
DX: Z51.12 Encounter for antineoplastic immunotherapy (principal); C34.32 Malignant neoplasm of lower lobe, left bronchus or lung
CPT/HCPCS: 96413

== ENCOUNTER 2020-10-24 11:25 | Day surgery (SDC) | payer SELFPAY ==
[2020-10-24] MEDS ORDERED: Sodium Chloride 0.9% 20 ML ONE (11:34)
[2020-10-24 12:21] VITALS: BP 161/70; TEMP 97.5
== END 2020-10-24 12:57 | disposition home or self-care (01) ==
LOC: ONC/OP 11:25
PROVIDERS: ATTEND Internal Medicine Hematology & Oncology
DX: Z51.12 Encounter for antineoplastic immunotherapy (principal); C34.32 Malignant neoplasm of lower lobe, left bronchus or lung
CPT/HCPCS: 96413

== ENCOUNTER 2020-10-28 10:41 | Outpatient (CLI) | payer SELFPAY ==
[~2020-10-28 10:41] MED LIST changes: +Iopamidol 370 76% 100 ML VIAL ONE; -Pembrolizumab 400 MG in Sodium Chloride 0.9% 250 ML 250 ML IV SCH
== END 2020-10-28 10:42 | disposition home or self-care (01) ==
LOC: EEVIPCON 10:41 → CT 10:41
PROVIDERS: ATTEND Internal Medicine Hematology & Oncology
DX: C34.32 Malignant neoplasm of lower lobe, left bronchus or lung (principal); J98.4 Other disorders of lung; I51.7 Cardiomegaly; R59.0 Localized enlarged lymph nodes
CPT/HCPCS: 71260; Q9967

== ENCOUNTER 2021-01-16 11:27 | Day surgery (SDC) | payer SELFPAY ==
[~2021-01-16 11:27] MED LIST changes: -Iopamidol 370 76% 100 ML VIAL ONE; +Pembrolizumab 400 MG in Sodium Chloride 0.9% 250 ML 250 ML IV SCH; +Pembrolizumab 400 MG in Sodium Chloride 0.9% 250 ML 250 ML IVPB SCH
[2021-01-16 11:44] VITALS: BP 167/71; TEMP 97.8
== END 2021-01-16 13:28 | disposition home or self-care (01) ==
LOC: ONC/OP 11:27
PROVIDERS: ATTEND Internal Medicine Hematology & Oncology
DX: Z51.12 Encounter for antineoplastic immunotherapy (principal); C34.32 Malignant neoplasm of lower lobe, left bronchus or lung
CPT/HCPCS: 96413; J7050; J9271

== ENCOUNTER 2021-01-16 13:24 | Outpatient (CLI) | payer SELFPAY | END 2021-01-16 13:25 | disposition home or self-care (01) | LOC: SDC 13:24 | PROVIDERS: ATTEND Internal Medicine Hematology & Oncology | DX: M25.551 Pain in right hip (principal); M25.552 Pain in left hip; M16.0 Bilateral primary osteoarthritis of hip ==

== ENCOUNTER → 2021-02-27 | Day surgery (SDC) | payer SELFPAY ==
[~2021-02-27] MED LIST changes: -Pembrolizumab 400 MG in Sodium Chloride 0.9% 250 ML 250 ML IV SCH
[2021-02-27 10:31] VITALS: BP 150/70; TEMP 97.8
== END ==
LOC: ONC/OP 10:12
PROVIDERS: ATTEND Internal Medicine Hematology & Oncology
DX: Z51.12 Encounter for antineoplastic immunotherapy (principal); C34.32 Malignant neoplasm of lower lobe, left bronchus or lung
CPT/HCPCS: 96413

== ENCOUNTER 2021-03-06 08:33 | Outpatient (CLI) | payer OTHER, SELFPAY ==
[2021-03-06] MEDS ORDERED: Iopamidol-370 76% 500 ML 1 ML ONE (09:32)
== END 2021-03-06 08:34 | disposition home or self-care (01) ==
LOC: CT 08:33
PROVIDERS: ATTEND Internal Medicine Hematology & Oncology
DX: C34.32 Malignant neoplasm of lower lobe, left bronchus or lung (principal); R91.8 Other nonspecific abnormal finding of lung field; J98.4 Other disorders of lung; M89.9 Disorder of bone, unspecified
CPT/HCPCS: 71260; 74177; 78306; A9503; Q9967

== ENCOUNTER 2021-03-21 08:17 | Outpatient (CLI) | payer SELFPAY | END 2021-03-21 08:18 | disposition home or self-care (01) | LOC: PET 08:17 | PROVIDERS: ATTEND Internal Medicine Hematology & Oncology | DX: C34.32 Malignant neoplasm of lower lobe, left bronchus or lung (principal); R59.0 Localized enlarged lymph nodes | CPT/HCPCS: 78815; A9552 ==

== ENCOUNTER 2021-04-10 09:50 | Day surgery (SDC) | payer SELFPAY ==
[2021-04-10] MEDS ORDERED: Sodium Chloride 0.9% 20 ML ONE (09:55)
[2021-04-10 10:43] VITALS: BP 151/65
== END 2021-04-10 14:16 | disposition home or self-care (01) ==
LOC: ONC/OP 09:50
PROVIDERS: ATTEND Internal Medicine Hematology & Oncology
DX: Z51.12 Encounter for antineoplastic immunotherapy (principal); C34.32 Malignant neoplasm of lower lobe, left bronchus or lung
CPT/HCPCS: 96413

== ENCOUNTER 2021-07-06 08:45 | Outpatient (CLI) | payer SELFPAY | END 2021-07-06 08:46 | disposition home or self-care (01) | LOC: PET 08:45 | PROVIDERS: ATTEND Internal Medicine Hematology & Oncology | DX: C34.32 Malignant neoplasm of lower lobe, left bronchus or lung (principal); R59.0 Localized enlarged lymph nodes; R91.8 Other nonspecific abnormal finding of lung field | CPT/HCPCS: 78815; A9552 ==